=== PATIENT | male | born 1980 | race Caucasian/White ===

== ENCOUNTER 2022-09-18 00:20 | Day surgery (SDC) | payer OTHER, SELFPAY ==
--- NOTE | 2022-09-11 13:35 | PC.NURSE ---
Report to the Outpatient Waiting Room, entrance under the green pavilion located off [facility], at time 10:00AM on date 09-18-22. Planned Procedure Time: 12:00PM. Time changes happen often and if your time is changed the preop area will call you the afternoon before. - You and your visitor will be asked to self-screen and do not enter if you have any COVID symptoms. - We encourage only one visitor and NO visitors under age 16 are allowed at this time. Your visitor will receive communication by the phone number that is given day of service. - The patient visitor is requested to social distance or may leave the building when not with patient due to restrictions. - A mask is required within the hospital. Patients may have clear liquids (water, carbonated beverages, clear teas, apple juice) until 3 hours prior to surgery (9:00AM) with a maximum of 20 ounces. - No food from midnight until time of surgery Take the following medications with a SIP of water the morning of surgery: N/A Medications to discontinue per physician: PROBIOTIC Date to take last dose: 09/14 Please no make-up, nail vietnamese, hairspray, perfume, deodorant, or body powder the day of surgery. No jewelry (including any body piercings) or valuables the day of surgery, leave them at home. Please take a shower or bath the night before, or the morning of, surgery with an antibacterial soap. Wear comfortable, loose fitting clothing. - Jewelry must be removed prior to entering the operating room. Rings and piercings that are not removed may be cut off. - The hospital will not accept responsibility for valuables. - Please leave all valuables, including medications, at home the day of surgery. If you are going home after surgery, a licensed light truck driver must drive you home. - NO public transportation without another adult. - We recommend that an adult stay with you for 24 hours following discharge. - We also recommend that you do not drive, make important decision, drink alcoholic beverages, or take any drugs that were not prescribed by your health care provider for at least 24 hours after your discharge time. Follow any additional instructions given to you from your surgeon. If you or anyone in your household have experienced Covid symptoms in the past week, please notify your surgeon or the nurse liaison at the phone number below for possible testing. Telephone instructions given to PATIENT and asked if any additional questions and then verbalized understanding. Patient advised to call surgeon office or pre surgery nurse liaison [phone] if any additional questions.
[2022-09-18] MEDS: KETOROLAC 15 MG/ML VIAL (*BKC) IV PUSH (10:40)
[2022-09-18] MEDS: LACTATED RINGERS 1,000 ML 30 ML IV CONT ×2 (10:40→12:59)
[2022-09-18] MEDS: ACETAMINOPHEN 500 MG TABLET 1000 MG PO (10:40)
[2022-09-18 10:44] VITALS: BP 146/107; PULSE 86; RESP 14; TEMP 36.3; O2SAT 99
--- NOTE | 2022-09-18 10:52 | WPDANESEPPF ---
Anes - Initial Pre Proc Eval Procedure: Operation Date: 09/18/22 12:00 Proposed Procedures p Umbilical Hernia Repair with Mesh - Manuel Hernandez MD Date/Time: 09/18/22 10:52 Surgeon: Manuel Hernandez MD Pre Op Diagnosis: umbilical hernia Patient Data Age: 42 Gender: M Height: 1.78 m Weight: 97.6 kg Last Vital Signs Temp 36.3 C L 09/18/22 10:44 Pulse 86 09/18/22 10:44 Resp 14 09/18/22 10:44 BP 146/107 H 09/18/22 10:44 Pulse Ox 99 09/18/22 10:44 O2 Del Method Room Air 09/18/22 10:44 Allergies Allergy/AdvReac Type Severity Reaction Status Date / Time amoxicillin Allergy Mild Hives Verified 09/18/22 10:48 Home Medications Medication Instructions Recorded Confirmed Type cetirizine 10 mg tablet (Zyrtec) 10 mg PO DAILY 08/15/21 09/11/22 History fluticasone propionate 50 1 spray intranasal DAILY 08/15/21 09/11/22 History mcg/actuation nasal spray,suspension (Flonase Allergy Relief) Saccharomyces boulardii 250 mg 5,000 mmu cells PO DAILY 04/22/22 09/11/22 History capsule (Daily Probiotic (S. boulardii)) Patient hx anesthesia problems: none Family hx anesthesia problems: none Results Review: All pre-operative results and documents have been reviewed as part of the pre-operative evaluation. [facility] Past Medical History Medical History (Updated 09/18/22 @ 10:55 by Dank Amaya MD) Allergies Headache Snores Surgical History Surgical History Hx of sinus surgery Status post trigger finger release Family History Family History Sibling Family history of kidney stones Mother Family history of malignant neoplasm of breast in first degree relative Social History Social History Years smoked: 4 Smoking status: Current some day smoker Tobacco type: cigars Second hand tobacco smoke exposure: No Alcohol intake: current Drinks per week: 25 Alcohol use details: LIQUIOR Substance use: never Substance use type: does not use Living arrangements: with family 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 Informed Consent: The patient's anesthetic plan and its attendant risks and benefits were discussed with the patient/family/POA. Questions were solicited and answers provided to the satisfaction of the patient/family/POA.
--- NOTE | 2022-09-18 12:00 | WPDHPUPDATE1 ---
History and Physical Update Update Date/Time: 09/18/22 12:00 History and Physical has been reviewed, including an updated exam of the patient. There are NO changes in the patient's condition. Risks, benefits, and alternatives have been discussed and questions answered. Patient agrees to proceed with procedure.
--- NOTE | 2022-09-18 12:03 | PM.SD2 ---
Same Day Admit/Disch: HPI History of Present Illness Chief complaint: umbilical hernia Narrative: Luis Miguel Mauro is a 42 year old male with a bulge in upper margin umbilicus. He was seen and found to have an umbilical hernia. He is taken to surgery now for repair with mesh. [facility] Past Medical History Medical History (Updated 09/18/22 @ 10:55 by Dank Amaya MD) Allergies Headache Snores Surgical History Surgical History Hx of sinus surgery Status post trigger finger release Family History Family History Sibling Family history of kidney stones Mother Family history of malignant neoplasm of breast in first degree relative Social History Social History Years smoked: 4 Smoking status: Current some day smoker Tobacco type: cigars Second hand tobacco smoke exposure: No Alcohol intake: current Drinks per week: 25 Alcohol use details: LIQUIOR Substance use: never Substance use type: does not use Living arrangements: with family Additional occupation/education comments: [employer] Gender identity (if verbalized by the patient): Male Spiritual care concerns: No Same Day Admit/Disch: Med Pre-admit Medications Home Medications Medication Instructions Recorded Confirmed Type cetirizine 10 mg tablet (Zyrtec) 10 mg PO DAILY 08/15/21 09/11/22 History fluticasone propionate 50 1 spray intranasal DAILY 08/15/21 09/11/22 History mcg/actuation nasal spray,suspension (Flonase Allergy Relief) Saccharomyces boulardii 250 mg 5,000 mmu cells PO DAILY 04/22/22 09/11/22 History capsule (Daily Probiotic (S. boulardii)) hydrocodone 5 mg-acetaminophen 325 1 - 2 tablet PO Q6H PRN pain #15 09/18/22 Rx mg tablet tabs ketorolac 10 mg tablet 10 mg PO Q6H 4 days #16 tabs 09/18/22 Rx Exam Const: General: comfortable, no acute distress, alert and awake HENMT: Head: normocephalic and atraumatic Mouth: Yes Normal oral and palatal mucosa present Eyes: Conjunctivae: conjunctivae normal Pupils: Equal, round and reactive pupils present EOM: EOMs intact bilaterally Neck: Neck: normal visual inspection, no lymphadenopathy and nontender Resp: Effort & Inspection: normal respiratory effort Auscultation: clear to auscultation bilaterally Cardio: Rate: regular rate Rhythm: regular rhythm Heart sounds: no gallops, no murmurs and no rubs GI: Inspection: non-distended and visible herniation (umbilical) GI Palp: Yes Soft to palpation, No Tenderness to palpation present (GI), No Hepatomegaly present, No Splenomegaly present and Yes Hernia present (umbilical, reducible) Skin: Lesions: no lesions Rashes: no rashes Neuro: General: no focal motor deficits and CN's II-XI intact bilaterally Cranial nerves: Yes Equal, round and reactive pupils present, Yes Bilaterally intact EOM present, Yes facial symmetry and Yes Midline tongue present Speech: normal speech Motor exam (neuro): 5/5 motor strength present throughout and Motor abnormalities not present Extrem: General: no clubbing, cyanosis or edema and edema Psych: Affect: normal affect Thought process: Normal thought process present Insight: Good insight present (Psych) DS: Summary Time Spent with Patient Time attestation: Total time spent providing and/or coordinating discharge services: DS: Admitting Diagnosis Discharge Date 09/18/22 Admitting Diagnosis Umbilical hernia--plan to repair with mesh under anesthesia. Procedure, risks, benefits were explained. Patient understands and agrees to proceed. DS: Discharge Diagnosis Discharge Diagnosis (1) Umbilical hernia: Code(s): K42.9 - Umbilical hernia without obstruction or gangrene Status: Acute Assessment and Plan: Repaired with mesh 09/18/[address] Hernandez Discharge Plan Discharge Pat
[2022-09-18] MEDS: ceFAZolin 2 GM/D5W 50 ML 2 GM/50 ML BAG IVPB (12:04)
[2022-09-18] MEDS: BUPIVACAINE/EPINEPHRINE 0.25% 50 ML VIAL 30 ML INFILTRATE (12:28)
[2022-09-18 13:05] VITALS: BP 153/80; PULSE 100; RESP 16; O2SAT 94
--- NOTE | 2022-09-18 13:25 | W.PM.PROC2 ---
Procedure Note - Detailed Date of Procedure 09/18/22 Pre-op Diagnosis umbilical hernia Post-op Diagnosis Same Procedure Performed Repair umbilical hernia with 4.[address] underlay mesh Surgeon Manuel Hernandez MD Clerk Of [address] Sheila ECKERT Anesthesia MAC and Local (0.25% Marcaine with epinephrine) Indications Patient is a 42-year-old man with a bulge just above the umbilicus. It has been getting larger and is occasionally uncomfortable. He is taken to surgery now for umbilical hernia repair with mesh. Findings Properitoneal fat was in the hernia defect. He had a defect of about 1 cm. Description of Procedure Patient was taken to surgery and anesthesia was introduced. The abdomen is prepped and draped. The proposed incision was marked along the upper margin of the umbilicus. Local was infiltrated in this area and in the subcutaneous. Incision was made dissection was carried down through the subcutaneous. The hernia sac was found it was dissected free of the umbilical skin and the subcutaneous tissue. The dissection was continued down to the neck of the hernia. Additional local was then infiltrated into the neck of the hernia sac into the surrounding fascia. I then amputated the hernia at the fascial margin. Some properitoneal fat in the hernia defect was excised as well. This tissue was discarded. I then put a finger in the hernia defect. No additional adhesions or hernias were noted. A 4.[address] patch was chosen and placed in the defect. It was positioned symmetrically. Cranial and caudal transfascial sutures of 0 Ethibond were then placed. These were positioned such that once they were tied, the advance the edges of the hernia defect towards 1 another. After tying the suture, they had the desired effect. I then placed additional sutures to close the hernia defect each of which incorporated some of the mesh. The repair looked quite good. I then sutured the umbilical skin to the fascia with an 0 Vicryl suture. Some subcutaneous 3-0 Vicryl sutures were then placed. The skin was loosely approximated with subcuticular 4-0 Vicryl skin suture. The skin was finally closed with a running 4-0 Monocryl skin suture. The wound was dressed with Exofin surgical adhesive. The patient was awakened and taken to outpatient recovery in good condition. Sponge and needle counts were correct x2. Implants 4.[address] patch Estimated Blood Loss -5.0 Drains No Packing No Pathology None sent Complications No immediate complications Condition Stable Disposition Same day [facility] Billing Surgery - Charge Forward: Surgery Billing (Umbilical hernia repair with mesh)
[2022-09-18 13:35] VITALS: BP 158/97; PULSE 64; RESP 16
[2022-09-18] MEDS: oxyCODONE HCL (*CRX) 5 MG TAB IR PO (14:03)
[2022-09-18 14:05] VITALS: BP 145/100; PULSE 60; RESP 16
== END 2022-09-18 14:35 | disposition home or self-care (01) ==
PROVIDERS: Visit Provider Surgery
PROC: (CPT 49585; principal; 2022-09-18 12:00)
DX: K42.9 Umbilical hernia without obstruction or gangrene (principal); F17.290 Nicotine dependence, other tobacco product, uncomplicated; E66.9 Obesity, unspecified; Z68.30 Body mass index [BMI] 30.0-30.9, adult
CPT/HCPCS: 49585; A9270; C1781; J0690; J1100; J1885; J2250; J2405; J2704; J3010; J7120

== ENCOUNTER 2022-09-19 03:56 | Inpatient (IN) | payer OTHER, SELFPAY ==
[2022-09-19] VITALS (17 sets, daily range): BP systolic 123–152; BP diastolic 82–100; PULSE 113–128; RESP 12–20; TEMP 36.4–37.7; O2SAT 92–100; BMI 32.3
--- NOTE | ~2022-09-19 | US_ITS ---
EXAMINATION: US venous doppler [facility] DATE: 09/24/2022 14:34 INDICATION: Lower limb edema. TECHNIQUE: Grayscale ultrasound images without and with compression and Doppler ultrasound images of the bilateral lower extremity veins were obtained. COMPARISON: None. FINDINGS: The visualized portions of right common femoral vein, profunda (deep) femoral vein, femoral vein, pop liteal vein, peroneal veins, posterior tibial veins, and greater saphenous vein outflow are patent. The visualized portions of left common femoral vein, profunda femoral vein, femoral vein, popliteal v ein, peroneal veins, posterior tibial veins, and greater saphenous vein outflow are patent. IMPRESSION: 1. No deep venous thrombosis. Reviewed, dictated and finalized at location A. LLMENT MANAGER
--- NOTE | 2022-09-19 04:07 | ADMGEN ---
This patient, Luis Miguel Mauro, was admitted to Medical Room 349-01. Patient/family oriented to hospital policies and general routines including ID bracelet, bed and alarms, visiting hours, pain management, procedures, bathroom and other care routines, personal items, smoking policy, room service/diet, and visiting hours. Information on how to activate the Rapid Response Team has been discussed. Patient/Family are encouraged to report perceived risks to care and to ask questions if they do not understand what they are told or what they should do.
[2022-09-19 04:25] LABS: Basophils Percent Auto 0.2 % (0.2-1.2); Hematocrit 44.6 % (42.0-52.0); Hemoglobin 14.9 g/dL (14.0-18.0); Immature Granulocyte Absolute 0.07 K/mm3 (0.00-0.031); Immature Granulocyte Percent A 0.5 % (0-0.5); Lymphocytes Absolute Auto 0.73 K/mm3 (0.9-3.2); Lymphocytes Percent Auto 5.1 % (18.3-44.2); Mean Corpuscular HGB Conc 33.4 g/dl (32-36); Mean Corpuscular Hemoglobin 29.1 pg (26-34); Mean Corpuscular Volume 87.1 fl (80-100); Mean Platelet Volume 10.3 fl (7.4-10.4); Monocytes Absolute Auto 0.8 K/mm3 (0.1-0.6); Monocytes Percent Auto 5.7 % (2.6-8.5); Neutrophils Absolute Auto 12.6 K/mm3 (1.3-6.7); Neutrophils Percent Auto 88.5 % (45.5-73.1); Platelet Count Result 251 k/mm3 (150-375); Red Blood Count 5.12 M/mm3 (4.6-6.20); Red Cell Distribution Width 13.4 % (11.5-14.5); White Blood Count 14.2 K/mm3 (4.5-10.0)
[2022-09-19 04:37] LABS: Alanine Aminotransferase 52 U/L (6-50); Albumin Level 4.4 g/dL (3.5-5.1); Alkaline Phosphatase 74 U/L (38-126); Anion Gap 12 mmol/L (8-16); Aspartate Amino Transferase 37 U/L (17-59); Bilirubin,Total 0.6 mg/dL (0.2-1.3); Blood Urea Nitrogen 15 mg/dL (9-20); Calcium 9.1 mg/dL (8.4-10.2); Carbon Dioxide 24 mmol/L (22-30); Chloride 104 mmol/L (98-107); Estimated Glomerular Filt Rate > 60; Glucose 142 mg/dL (65-110); Potassium 4.5 mmol/L (3.4-5.0); Sodium 140 mmol/L (137-145)
[2022-09-19] MEDS: SODIUM CHLORIDE 0.9% IV 1,000 ML 100 ML IV CONT (05:13)
[2022-09-19] MEDS: HYDROmorphone HCL INJ (*CRX) 1 MG/ML SYR 0.5 MG IV PUSH ×2 (07:27→09:48)
[2022-09-19] MEDS: IBUPROFEN IV 800 MG/200 ML 800 MG/200 ML BAG 400 MG IVPB ×3 (08:18→23:26)
--- NOTE | 2022-09-19 09:24 | PM.IMHP ---
H&P: HPI History of Present Illness Date/Time: 09/19/22 09:24 Chief Complaint: abdominal pain Narrative: patient is a 42-year-old man who presented with a symptomatic umbilical hernia. Yesterday he underwent umbilical hernia repair with 4.[address] underlay mesh patch. The surgery was done under deep sedation and local anesthetic. The patient went home and was having a normal recovery until about 6 hours after revive in home when he began experiencing severe periumbilical pain. This persisted and they called my partner who was on-call last night. They were instructed to go to the emergency room. They went to the emergency room in [place]. There was concern over cardiac etiology. This was evaluated and found to be negative. [place] [id number]. He was continuing to have pain. A CT scan of the abdomen and pelvis was done in [place]. This was negative by the radiologist report. After calling my partner again, he transferred to [place] and has been admitted. He arrived here about 4:00 a.m.. He has continued to have pain although Dilaudid and more recently some IV ibuprofen has made this more tolerable. I reviewed the CT disc from [place] with our radiologist, Dr. Bhaskar Chand, and no significant intra-abdominal process was identified from our reading as well. I did notice there is a loop of small bowel that seems to be directly under the repair. Patient continues to have abdominal pain and tenderness. It is thought likely there is some degree of bowel entrapment associated with the repair. He is to return to surgery today for exploratory laparotomy to evaluate this and alleviate this problem should it exist. Review of Systems Review of Systems: All systems reviewed & are unremarkable except as noted in HPI and below ( HPI and those items noted below) Constitutional: Constitutional: Reports as per HPI, Denies chills, Reports difficulty sleeping, Denies fever(s) and Reports poor appetite Cardiovascular: Cardiovascular: Denies chest pain, Denies diaphoresis, Denies dyspnea and Denies paroxysmal nocturnal dyspnea Respiratory: Respiratory: Denies chest congestion, Denies cough and Denies dyspnea Gastrointestinal: Gastrointestinal: Reports as per HPI, Reports abdominal pain, Reports nausea and Reports vomiting ( dry heaves) Integumentary/Breasts: Skin/Breast: Denies lesions and Denies rash [facility] Past Medical History Medical History (Updated 09/19/22 @ 09:34 by Manuel Hernandez MD) Allergies Headache Snores Surgical History Surgical History (Updated 09/19/22 @ 09:34 by Manuel Hernandez MD) Hx of sinus surgery Status post trigger finger release Family History Family History Sibling Family history of kidney stones Mother Family history of malignant neoplasm of breast in first degree relative Social History Social History Years smoked: 4 Smoking status: Light tobacco smoker Tobacco type: cigars Second hand tobacco smoke exposure: No Alcohol intake: current Drinks per week: 20 Alcohol use details: LIQUIOR Substance use: never Substance use type: does not use Has the Lack of Transportation Kept You From Medical Appointments or From Getting Medications?: No Within the Past 12 Months, Were You Worried Whether Your Food Would Run Out Before You Got Money to Buy More?: Sometimes True What is Your Housing Situation Today?: I Have Housing Are You Worried That in the Next 2 Months, You May Not Have Your Own Housing to Live In?: No Do You Have Trouble Paying Your Heating Or Electricity Bill?: Yes Do You Have Trouble Paying For Medicines?: Yes Are You Currently Unemployed and Looking for Work?: Yes Highest Level of Education Completed: Associate Degree Do You Have Trouble With Childcare or the Care of a Family Member?: No Additional occupation
--- NOTE | 2022-09-19 09:39 | WPDHPUPDATE1 ---
History and Physical Update Update Date/Time: 09/19/22 09:39 History and Physical has been reviewed, including an updated exam of the patient. There are NO changes in the patient's condition. Risks, benefits, and alternatives have been discussed and questions answered. Patient agrees to proceed with procedure.
--- NOTE | 2022-09-19 10:24 | PC.NURSE ---
0800 Dr moore notified of pt abd distended and could not hear bowel sounds, pt c/o pain. BP 167/89, hr 125, resp 22 and temp 99.7. New orders received.
[2022-09-19] MEDS: HYDROmorphone HCL INJ (*CRX) 1 MG/ML SYR IV PUSH ×2 (11:26→20:37)
[2022-09-19] MEDS: LACTATED RINGERS 1,000 ML 30 ML IV CONT ×2 (12:45→15:05)
--- NOTE | 2022-09-19 12:52 | WPDANESEPPF ---
Anes - Initial Pre Proc Eval Procedure: Operation Date: 09/19/22 13:30 Proposed Procedures p Exploratory Laparotomy - Manuel Hernandez MD Date/Time: 09/19/22 12:52 Surgeon: Manuel Hernandez MD Pre Op Diagnosis: Post Op complications Patient Data Age: 42 Gender: M Height: 1.78 m Weight: 102.3 kg Last Vital Signs Temp 37.2 C 09/19/22 11:13 Pulse 116 H 09/19/22 11:13 Resp 20 09/19/22 11:13 BP 152/97 H 09/19/22 11:13 Pulse Ox 92 09/19/22 11:13 O2 Del Method Room Air 09/19/22 04:37 Allergies Allergy/AdvReac Type Severity Reaction Status Date / Time amoxicillin Allergy Mild Hives Verified 09/18/22 10:48 Home Medications Medication Instructions Recorded Confirmed Type cetirizine 10 mg tablet (Zyrtec) 10 mg PO DAILY 08/15/21 09/19/22 History fluticasone propionate 50 1 spray intranasal DAILY 08/15/21 09/19/22 History mcg/actuation nasal spray,suspension (Flonase Allergy Relief) Saccharomyces boulardii 250 mg 5,000 mmu cells PO DAILY 04/22/22 09/19/22 History capsule (Daily Probiotic (S. boulardii)) hydrocodone 5 mg-acetaminophen 325 1 - 2 tablet PO Q6H PRN Pain 09/19/22 09/19/22 History mg tablet (Scale Score 4-6) ketorolac 10 mg tablet 10 mg PO Q6H PRN Pain (Scale Score 09/19/22 09/19/22 History 1-3) Laboratory Tests 09/19/22 09/19/22 09/19/22 04:00 04:15 09:37 WBC 14.2 K/mm3 H K/mm3 (4.5-10.0) RBC 5.12 M/mm3 M/mm3 (4.6-6.20) Hgb 14.9 g/dL g/dL (14.0-18.0) Hct 44.6 % % (42.0-52.0) MCV 87.1 fl fl (80-100) MCH 29.1 pg pg (26-34) MCHC 33.4 g/dl g/dl (32-36) RDW 13.4 % % (11.5-14.5) Plt Count 251 k/mm3 k/mm3 (150-375) MPV 10.3 fl fl (7.4-10.4) Immature Gran % (Auto) 0.5 % % (0-0.5) Neut % (Auto) 88.5 % H % (45.5-73.1) Lymph % (Auto) 5.1 % L % (18.3-44.2) [place] % (Auto) 5.7 % % (2.6-8.5) Eos % (Auto) 0.0 % % (0-4.4) Baso % (Auto) 0.2 % % (0.2-1.2) Lymph # (Auto) 0.73 K/mm3 L K/mm3 (0.9-3.2) [place] # (Auto) 0.8 K/mm3 H K/mm3 (0.1-0.6) Eos # (Auto) 0.0 K/mm3 K/mm3 (0-0.3) Baso # (Auto) 0.0 K/mm3 K/mm3 (0.0-0.1) Abs Immat Gran (auto) 0.07 K/mm3 H K/mm3 (0.00-0.031) Absolute Neuts (auto) 12.6 K/mm3 H K/mm3 (1.3-6.7) Absolute Nucleated RBC 0.0 K/mm3 K/mm3 (0.0-0.012) Nucleated RBC % 0.0 % % (0.0-0.2) Sodium 140 mmol/L mmol/L (137-145) Potassium 4.5 mmol/L mmol/L (3.4-5.0) Chloride 104 mmol/L mmol/L (98-107) Carbon Dioxide 24 mmol/L mmol/L (22-30) Anion Gap 12 mmol/L mmol/L (8-16) BUN 15 mg/dL mg/dL (9-20) Creatinine 1.20 mg/dL mg/dL (0.7-1.3) Estim Creat Clear Calc Not Reportable Estimated GFR > 60 (59 - ) Glucose 142 mg/dL H mg/dL (65-110) Calcium 9.1 mg/dL mg/dL (8.4-10.2) Total Bilirubin 0.6 mg/dL mg/dL (0.2-1.3) AST 37 U/L U/L (17-59) ALT 52 U/L H U/L (6-50) Alkaline Phosphatase 74 U/L U/L (38-126) Total Protein 8.0 g/dL g/dL (6.3-8.2) Albumin 4.4 g/dL g/dL (3.5-5.1) Blood Type A Positive Antibody Screen Negative Patient hx anesthesia problems: none Family hx anesthesia problems: none Results Review: All pre-operative results and documents have been reviewed as part of the pre-operative evaluation. PMF Past Medical History Medical History Allergies Headache Snores Surgical History Surgical History (Updated 09/19/22 @ 12:53 by Dank Amaya MD) H/O umbilical hernia repair Hx of sinus surgery Status post trigger finger release Family History Family History (Reviewed 09/19/22
[2022-09-19] MEDS: ceFAZolin 2 GM/D5W 50 ML 2 GM/50 ML BAG IVPB (13:18)
[2022-09-19] MEDS: BUPIVACAINE/EPINEPHRINE 0.25% 50 ML VIAL 30 ML INFILTRATE (14:35)
--- NOTE | 2022-09-19 16:09 | W.PM.PROC2 ---
Procedure Note - Detailed Date of Procedure 09/19/22 Pre-op Diagnosis Mid abdominal pain Post-op Diagnosis Other (Bowel injury with perforation) Procedure Performed Repair small intestinal enterotomy Surgeon Manuel Hernandez MD [employer] Equipment [employer] Manager Carlotta ECKERT Anesthesia General Indications Patient is a 42-year-old man who had repair of an umbilical hernia yesterday. This was done with underlay Ventralex ST 4.3 cm mesh. He was home about 6 hours when he started having severe abdominal pain. He went to the emergency room in [place]. Cardiac workup and CT scan were negative. He continued to have pain and transferred to [place] where he was admitted. CT again was reviewed and did not show any significant findings. However due to the persistent severe abdominal pain and tenderness, patient is taken to surgery for exploratory laparotomy for suspected bowel injury from his hernia repair yesterday. Findings There was an enterotomy in the ileum about 4 ft from the ileocecal valve which was leaking intestinal content. Most likely this had been snagged on a suture and when pulled away started leaking enteric content. There was small bowel content in the abdomen. No other pathology was noted. Description of Procedure The patient was taken to surgery and induced into general anesthesia. The surgical adhesive was removed as best possible from the old incision. Prep and drape of the entire abdomen was carried out. The curved incision above the upper margin of the umbilicus was reopened. Sutures were removed in the subcutaneous and the suture holding the umbilical skin to the fascia was removed as well. I then cut all of the Ethibond suture used in the repair and removed each of them. I then carefully removed the mesh. I looked at the undersurface the mesh as I was removing it. I saw nothing unusual. Directly under the mesh, there was some small intestine but it did not have any injury. Elevating the fascia I then saw some small bowel content. Clearly there was an enterotomy that would have to be found and repaired. The umbilical hernia defect was small only about a cm in diameter. The surgery was converted to a more conventional laparotomy. A midline incision was made starting below the umbilicus and extending above it. Dissection through the subcutaneous was carried out and the midline fascia was opened such that the peritoneal cavity could be entered and explored. More enteric content was encountered. We suctioned as much of this away as possible. I then looked and found the injury in the small bowel. To temporarily stop leakage, I used a couple of 2-0 silk Lembert suture. This controlled the leakage. I then suctioned away as much of the enteric content in the peritoneal cavity as I could. We irrigated with a full L of warm saline and suctioned all of that away. By the end of this, most of the content was serous or serosanguineous. I then ran the entire small intestine. This was the only injury found. It was about 4 ft proximal to the ileocecal valve in the distal ileum. Interestingly, it was several feet distal to the bowel laying directly under the mesh on opening the abdomen. The nasogastric tube was positioned appropriately in the stomach. I then brought up the injured small bowel and quarantined it. The injury was at the junction of the mesentery. I put noncrushing bowel clamps on either side of the injury. The previously placed silk suture were removed. I then carefully examined the injury. The edges of the bowel seemed viable. I then carefully dissected away the mesentery so that I could see bowel serosa all around the area of the injury. Cautery was used for hemostasis. Bleeding was minimal. I closed the enterotomy in 2 layers. The inner layer was full-thickness inverted 4-0 chromic suture in interrupted fashion. The outer layer was Lembert seromuscular suture of 4-0 silk in interrupted fashion. The repair looked quite good. I trie
--- NOTE | 2022-09-19 17:18 | PM.IMCN ---
Assessment and Plan Assessment and plan (1) Obesity (BMI 30-39.9): Code(s): E66.9 - Obesity, unspecified Status: Acute (2) Hyperlipidemia: Code(s): E78.5 - Hyperlipidemia, unspecified Status: Acute (3) GERD (gastroesophageal reflux disease): Code(s): K21.9 - Gastro-esophageal reflux disease without esophagitis Status: Acute (4) Tobacco use: Code(s): Z72.0 - Tobacco use Status: Acute (5) History of umbilical hernia repair: Code(s): Z98.890 - Other specified postprocedural states; Z87.19 - Personal history of other diseases of the digestive system Status: Acute (6) Transient elevated blood pressure: Code(s): R03.0 - Elevated blood-pressure reading, without diagnosis of hypertension Status: Acute (7) Gastritis: Code(s): K29.70 - Gastritis, unspecified, without bleeding Status: Acute (8) Daily consumption of alcohol: Code(s): Z78.9 - Other specified health status Status: Acute Plan 42-year-old male status postop day 1 after herniorrhaphy presents to the hospital with acute abdominal pain and distension. Admit to med surge Vital signs per protocol Continue home medications when placed into p.o. status Levaquin metronidazole CIWA monitoring Consult Dr. Hernandez Postoperative orders pain management, fluids, antiemetics, and antacids per surgery HPI Data of Consult Consult date: 09/19/22 Requesting Physician: Manuel Hernandez MD Primary Care Provider: Jodee Osei, DO Consult Narrative Narrative: Luis Miguel Mauro is a 42 year old male Who underwent laparoscopic hernia repair with Dr. Hernandez at [facility] yesterday. Patient reports that he is having worsening abdominal distension and pain and he has presented today for surgical evaluation with Dr. Hernandez. CT imaging findings are suspicious for possible small bowel entrapment. Patient is scheduled now to undergo exploratory laparotomy by Surgeon. General review of systems is otherwise within normal limits and other than abdominal pain and distension he has no complaints. Review of Systems Review of Systems: All systems reviewed & are unremarkable except as noted in HPI and below PMFSH Past Medical History Medical History (Updated 09/19/22 @ 17:23 by Zo Lopez MD) Allergies Daily consumption of alcohol Gastritis GERD (gastroesophageal reflux disease) Headache Hyperlipidemia Obesity (BMI 30-39.9) Snores Tobacco use Transient elevated blood pressure Surgical History Surgical History (Updated 09/19/22 @ 17:23 by Zo Lopez MD) H/O umbilical hernia repair History of umbilical hernia repair Hx of sinus surgery Status post trigger finger release Family History Family History Sibling Family history of kidney stones Mother Family history of malignant neoplasm of breast in first degree relative Social History Social History Years smoked: 4 Smoking status: Light tobacco smoker Tobacco type: cigars Second hand tobacco smoke exposure: No Alcohol intake: current Drinks per week: 20 Alcohol use details: LIQUIOR Substance use: never Substance use type: does not use Has the Lack of Transportation Kept You From Medical Appointments or From Getting Medications?: No Within the Past 12 Months, Were You Worried Whether Your Food Would Run Out Before You Got Money to Buy More?: Sometimes True What is Your Housing Situation Today?: I Have Housing Are You Worried That in the Next 2 Months, You May Not Have Your Own Housing to Live In?: No Do You Have Trouble Paying Your Heating Or Electricity Bill?: Yes Do You Have Trouble Paying For Medicines?: Yes Are You Currently Unemployed and Looking for Work?: Yes Highest Level of Education Completed: Associate Degree Do You Have Trouble With Chil
[2022-09-19 18:18] LABS: Glucose Point of Care 149 mg/dl (65-105)
[2022-09-19] MEDS: LACTATED RINGERS 1,000 ML 100 ML IV CONT (20:29)
[2022-09-19] MEDS: FAMOTIDINE 20 MG/2 ML VIAL IV PUSH (20:39)
[2022-09-19] MEDS: metroNIDAZOLE 500 MG/ISO 100ML 500 MG/100 ML BAG 100 MG IVPB (20:42)
[2022-09-20] VITALS (7 sets, daily range): BP systolic 134–150; BP diastolic 84–102; PULSE 108–122; RESP 16–20; TEMP 36.6–37.2; O2SAT 90–96
[2022-09-20 01:04] LABS: Glucose Point of Care 144 mg/dl (65-105)
[2022-09-20] MEDS: metroNIDAZOLE 500 MG/ISO 100ML 500 MG/100 ML BAG 100 MG IVPB ×4 (01:55→18:52)
[2022-09-20] MEDS: IBUPROFEN IV 800 MG/200 ML 800 MG/200 ML BAG 400 MG IVPB ×4 (04:22→22:58)
[2022-09-20 06:05] LABS: Hematocrit 41.4 % (42.0-52.0); Hemoglobin 13.5 g/dL (14.0-18.0); Mean Corpuscular HGB Conc 32.6 g/dl (32-36); Mean Corpuscular Hemoglobin 28.7 pg (26-34); Mean Corpuscular Volume 87.9 fl (80-100); Mean Platelet Volume 10.6 fl (7.4-10.4); Platelet Count Result 211 k/mm3 (150-375); Red Blood Count 4.71 M/mm3 (4.6-6.20); Red Cell Distribution Width 13.9 % (11.5-14.5); White Blood Count 10.5 K/mm3 (4.5-10.0)
[2022-09-20 06:12] LABS: Anion Gap 16 mmol/L (8-16); Blood Urea Nitrogen 15 mg/dL (9-20); Calcium 8.3 mg/dL (8.4-10.2); Carbon Dioxide 24 mmol/L (22-30); Chloride 104 mmol/L (98-107); Estimated CRCL calculation 87 ml/min; Estimated Glomerular Filt Rate > 60; Glucose 144 mg/dL (65-110); Potassium 3.9 mmol/L (3.4-5.0); Sodium 144 mmol/L (137-145)
[2022-09-20] MEDS: HYDROmorphone HCL INJ (*CRX) 1 MG/ML SYR IV PUSH (06:14)
[2022-09-20] MEDS: ENOXAPARIN 40 MG/0.4 ML SYRINGE SUB-Q (08:48)
[2022-09-20] MEDS: FAMOTIDINE 20 MG/2 ML VIAL IV PUSH ×2 (08:48→20:11)
[2022-09-20] MEDS: THIAMINE HCL 200 MG/2 ML VIAL 100 MG IV PUSH (08:48)
[2022-09-20 09:20] LABS: Glucose Point of Care 166 mg/dl (65-105)
[2022-09-20] MEDS: LACTATED RINGERS 1,000 ML 100 ML IV CONT (10:24)
--- NOTE | 2022-09-20 10:39 | PM.IMPN ---
Progress Note: A&P Assessment and Plan (1) Obesity (BMI 30-39.9): Code(s): E66.9 - Obesity, unspecified Status: Acute (2) Hyperlipidemia: Code(s): E78.5 - Hyperlipidemia, unspecified Status: Acute (3) GERD (gastroesophageal reflux disease): Code(s): K21.9 - Gastro-esophageal reflux disease without esophagitis Status: Acute (4) Tobacco use: Code(s): Z72.0 - Tobacco use Status: Acute (5) History of umbilical hernia repair: Code(s): Z98.890 - Other specified postprocedural states; Z87.19 - Personal history of other diseases of the digestive system Status: Acute (6) Transient elevated blood pressure: Code(s): R03.0 - Elevated blood-pressure reading, without diagnosis of hypertension Status: Acute (7) Gastritis: Code(s): K29.70 - Gastritis, unspecified, without bleeding Status: Acute (8) Daily consumption of alcohol: Code(s): Z78.9 - Other specified health status Status: Acute Plan 09/19/22 ?42-year-old male? status postop day 1 after herniorrhaphy presents to the hospital with acute abdominal pain and distension. ?Admit to med surge Vital signs per protocol Continue home medications? when placed into p.o. status ?Levaquin ?metronidazole ?CIWA monitoring Consult Dr. Hernandez Postoperative orders pain management, fluids, antiemetics, and antacids per surgery 09/20/22 s/p exp lap, repair of duodenal enterotomy w peritoneal washout POD1 VS improving labs improving pain improved but not controlled (pt not asking for pain meds intentionally) OOB to chair ambulate in hallway NGT to remain until bowel fxn regained Subjective Date/time seen: 09/20/22 10:39 pt feeling much better pending activity recs by surgeon but is wanting to get up to chair and wants NGT out pain improved Review of Systems Review of Systems: All systems reviewed & are unremarkable except as noted in HPI and below Exam Narrative: Const:?? General: NAD comfo rtable resting HENMT:?? Face/Nose/Sinus: N ormal nares presen t and no epistaxis ? Mouth: Yes moist mucous membranes, NGT present Eyes:?? General: appearanc e normal, both eye s and all related structures? EOM: E OMs intact bilater ally Neck:?? Neck: supple and n o JVD Resp:?? Effort & Inspectio n: normal respirat ory effort? Auscul tation: clear to a uscultation bilate rally, no rhonchi and no wheezes Cardio:?? Rate: regular rate ? Rhythm: regular rhythm GI:?? Inspection: disten ded? GI Palp: Yes soft to palpation present (GI), Yes Tenderness to palp ation present (GI) and No Guarding due to palpation p resent (GI)? Auscu ltation: abnormal bowel sounds Skin:?? General skin exam: normal color and no erythema? Other : ?surgical sites covered with martinez ge C/D/I Neuro:?? Speech: normal spe ech? Motor exam (n euro): 5/5 motor s trength present th roughout and Mima l motor muscle ton e present througho ut Extrem:?? General: normal to
[2022-09-20 12:45] LABS: Glucose Point of Care 135 mg/dl (65-105)
--- NOTE | 2022-09-20 13:20 | PM.PNGS ---
Progress Note: A&P Assessment and Plan (1) Accidental injury of intestine during surgical procedure: Code(s): K91.81 - Other intraoperative complications of digestive system Status: Acute Assessment and Plan: I had discussed the nature of the injury and the cause of the injury with both the patient and his yesterday. Since he may have been somewhat under anesthetic affect as well as being ill from the peritonitis, I discussed again with him the bowel injury was due to inadvertently suturing the edge of the bowel with the hernia mesh. The bowel subsequently pulled away and injury was likely the result. I explained the intra-abdominal findings. We again discussed the length of recovery expected at this point. All questions were answered. He still has evidence of a dynamic ileus. Will continue NG tube today, NPO except ice chips, and IV fluids. Up walking today. Continue analgesics as ordered. (2) History of umbilical hernia repair: Code(s): Z98.890 - Other specified postprocedural states; Z87.19 - Personal history of other diseases of the digestive system Status: Acute (3) Peritonitis (acute) generalized: Code(s): K65.0 - Generalized (acute) peritonitis Status: Acute Assessment and Plan: Continue Levaquin and metronidazole antibiotics. Subjective Subjective Date/Time Seen: 09/20/22 13:20 Post Op day: 1 Patient reports: feels better, still having pain (Soreness but not the severe pain he was having preop), no flatus, no bowel movement and fever (Low-grade, 37.7 max) Exam Const: General: cooperative, healthy appearing, comfortable, no acute distress, alert, awake and well nourished GI: Inspection: non-distended and incision (Dressing dry and intact) GI Palp: Yes Soft to palpation and Yes Tenderness to palpation present (GI) Auscultation: absent bowel sounds Objective Data Vital Signs Vital Signs: Vital Signs - 24 hr 09/19/22 15:10 09/19/22 15:25 09/19/22 15:40 Temperature 36.4 C L Pulse Rate 115 H 117 H 118 H Respiratory Rate 16 12 12 Blood Pressure 129/82 143/100 H 148/99 H Pulse Oximetry 92 100 100 Oxygen Delivery Simple Face Mask Simple Face Mask Simple Face Mask Oxygen Flow Rate 8 8 8 09/19/22 15:55 09/19/22 16:10 09/19/22 16:25 Temperature Pulse Rate 119 H 119 H 116 H Respiratory Rate 15 14 12 Blood Pressure 144/97 H 140/95 H 133/95 H Pulse Oximetry 100 96 95 Oxygen Delivery Simple Face Mask Nasal Cannula Nasal Cannula Oxygen Flow Rate 8 2 2 09/19/22 16:40 09/19/22 17:00 09/19/22 17:15 Temperature 36.4 C 36.7 C Pulse Rate 118 H 128 H 123 H Respiratory Rate 15 16 16 Blood Pressure 137/87 137/91 H 136/91 H Pulse Oximetry 96 93 94 Oxygen Delivery Nasal Cannula Oxygen Flow Rate 2 09/19/22 17:45 09/19/22 18:12 09/19/22 18:44 Temperature 36.6 C 36.6 C Pulse Rate 119 H 117 H Respiratory Rate 18 16 Blood Pressure 149/98 H 149/98 H 123/83 Pulse Oximetry 95 96 Oxygen Delivery Oxygen Flow Rate 09/19/22 19:54 09/19/22 20:30 09/20/22 05:48 Temperature 36.5 C 36.6 C Pulse Rate 113 H 115 H Respiratory Rate 20 20 Blood Pressure 141/84 H 150/84 H Pulse Oximetry 96 96 93 Oxygen Delivery Room Air Oxygen Flow Rate 09/20/22 08:50 09/20/22 10:28 Temperature 37.2 C Pulse Rate 108 H Respiratory Rate 16 Blood Pressure 134/94 H Pulse Oximetry 93 96 Oxygen Delivery Nasal Cannula Oxygen Flow Rate 1.5 Intake/Output Intake/Output: Intake & Output 09/17/22 09/18/22 09/19/22 09/20/22 23:59 23:59 23:59 23:59 Intake Total 2400 1800 Output Total 1200 350 Balance 1200 1450 Meds/Results Medications: Active Medications Generic Name Dose Route Start Last Admin Trade Name Freq PRN Reason Stop Dose Admin Enoxaparin Sodium 40 mg 09/20/22 09:00 09/20/22 08:48 Enoxaparin 40 Mg/0.4 Ml Syringe SUB-Q 40 mg DAILY ADRIANA Administration Famotidine 20 mg 09/19/22 21:00 09/20/22 08:48
[2022-09-20 17:49] LABS: Glucose Point of Care 122 mg/dl (65-105)
[2022-09-20] MEDS: HYDROmorphone HCL INJ (*CRX) 1 MG/ML SYR 0.5 MG IV PUSH (18:52)
--- NOTE | 2022-09-20 19:01 | PC.NURSE ---
Spoke with pharmacy about patient's antibiotics. Patient lost IV access before I was able to hang 1700 flagyl or levaquin. Regained access and hung flagyl at 1852. Asked pharmacist what should be done with next dose of flagyl and levaquin for 1700. Pharmacist stated to hang next dose of flagyl at 1 AM and okay to hang 1700 levaquin when flagyl that started at 1852 is finished.
[2022-09-20 20:01] LABS: Glucose Point of Care 121 mg/dl (65-105)
[2022-09-20] MEDS: ONDANSETRON INJ 4 MG/2 ML VIAL IV PUSH (22:57)
[2022-09-21] MEDS: metroNIDAZOLE 500 MG/ISO 100ML 500 MG/100 ML BAG 100 MG IVPB ×5 (01:00→23:15)
--- NOTE | 2022-09-21 01:41 | PC.NURSE ---
Daylight Savings Time For Daylight Savings Time Ending in the Fall - Clocks are moved back. For Daylight Savings Time Beginning in the Spring - Clocks are moved ahead. For [facility], the time of change occurs at 0200 hrs. Time is taken from the casino beverage server. This entry on the patient's chart recognizes the change in time reflected during documentation. Example: 2 entries for vital signs may be charted for 0200 hrs.
[2022-09-21] MEDS: HYDROmorphone HCL INJ (*CRX) 1 MG/ML SYR IV PUSH (02:31)
[2022-09-21] MEDS: LACTATED RINGERS 1,000 ML 100 ML IV CONT ×2 (03:46→03:47)
[2022-09-21] MEDS: IBUPROFEN IV 800 MG/200 ML 800 MG/200 ML BAG 400 MG IVPB ×4 (04:39→22:06)
[2022-09-21 06:07] VITALS: BP 148/85; PULSE 108; RESP 20; TEMP 36.7; O2SAT 95
[2022-09-21 06:10] LABS: Glucose Point of Care 117 mg/dl (65-105)
--- NOTE | 2022-09-21 10:19 | PM.PNGS ---
Progress Note: A&P Assessment and Plan (1) Peritonitis (acute) generalized: Code(s): K65.0 - Generalized (acute) peritonitis Status: Acute Assessment and Plan: good that he is passing flatus but still no bowel sounds on exam. Will continue NPO except ice chips. Encouraged to continue ambulation. Start daily dressing changes today. Continue to monitor closely for signs of return bowel function or other complications from surgery. So far doing well. (2) Accidental injury of intestine during surgical procedure: Code(s): K91.81 - Other intraoperative complications of digestive system Status: Acute Assessment and Plan: Repaired, no evidence of further problems. (3) History of umbilical hernia repair: Code(s): Z98.890 - Other specified postprocedural states; Z87.19 - Personal history of other diseases of the digestive system Status: Acute Subjective Subjective Date/Time Seen: 09/21/22 10:19 Post Op day: 2 Patient reports: still having pain, flatus, no bowel movement and afebrile Interval history: Doing a lot of walking. Exam Const: General: comfortable and no acute distress; No confusion Orientation/consciousness: patient oriented x3 and No confusion GI: Inspection: Abdominal wall edema, distended and incision ( Looks good, no erythema, healing well) GI Palp: Yes Soft to palpation, Yes Tenderness to palpation present (GI) ( less tender than yesterday), No Guarding due to palpation present (GI) and No Rebound tenderness present Auscultation: absent bowel sounds Neuro: General: patient oriented x3, no focal motor deficits and No confusion Extrem: General: no calf tenderness and no edema Psych: Affect: normal affect Insight: Good insight present (Psych) Judgement: Good judgement present (Psych) Objective Data Vital Signs Vital Signs: Vital Signs - 24 hr 09/20/22 14:27 09/20/22 18:28 09/20/22 20:07 Temperature 36.6 C 37.2 C 36.8 C Pulse Rate 113 H 120 H 122 H Respiratory Rate 18 18 20 Blood Pressure 137/94 H 150/90 H 143/102 H Pulse Oximetry 96 94 93 Oxygen Delivery Oxygen Flow Rate 09/20/22 20:10 09/21/22 06:07 Temperature 36.7 C Pulse Rate 108 H Respiratory Rate 20 20 Blood Pressure 148/85 H Pulse Oximetry 90 95 Oxygen Delivery Nasal Cannula Oxygen Flow Rate 2 Intake/Output Intake/Output: Intake & Output 09/18/22 09/19/22 09/20/22 09/21/22 23:59 23:59 23:59 22:59 Intake Total 2400 3550 1300 Output Total 1200 1100 800 Balance 1200 2450 500 Meds/Results Medications: Active Medications Generic Name Dose Route Start Last Admin Trade Name Freq PRN Reason Stop Dose Admin Enoxaparin Sodium 40 mg 09/20/22 09:00 09/20/22 08:48 Enoxaparin 40 Mg/0.4 Ml Syringe SUB-Q 40 mg DAILY ADRIANA Administration Famotidine 20 mg 09/19/22 21:00 09/20/22 20:11 Famotidine 20 Mg/2 Ml Vial IV PUSH 20 mg Q12HR ADRIANA Administration Hydromorphone HCl 1 mg 09/20/22 13:20 09/21/22 02:31 Hydromorphone Hcl Inj (*Crx) 1 Mg/Ml Syr IV PUSH 1 mg Q2H PRN Administration Pain Rated 7-10 Hydromorphone HCl 0.5 mg 09/20/22 13:19 09/20/22 18:52 Hydromorphone Hcl Inj (*Crx) 1 Mg/Ml Syr IV PUSH 0.5 mg Q2H PRN Administration Pain Rated 4-6 Lactated Ringer's 1,000 mls @ 100 mls/hr 09/19/22 16:43 09/21/22 03:47 Lr - Lactated Ringers Iv IV CONT 100 mls/hr .Q10H ADRIANA Administration Ibuprofen 800 mg in 200 mls @ 400 mls/hr 09/19/22 16:43 09/21/22 05:10 Caldolor 800 Mg/200 Ml IVPB Infused Q6H ADRIANA Infusion Levofloxacin/Dextrose 750 mg in 150 mls @ 100 mls/hr 09/19/22 17:00 09/20/22 21:40 Levaquin 750 Mg/D5w 150 Ml IVPB Infused Q24H ADRIANA Infusion Metronidazole 500 mg in 100 mls @ 100 mls/hr 09/19/22 17:00 09/21/22 05:24 Flagyl 500 Mg/Iso Soln 100 Ml IVPB 100 mls/hr Q6H ADRIANA Administration Lorazepam 2 mg 09/19/22 17:27 Lorazepam Inj (*Crx) 2 Mg/Ml Vial IV PUSH
[2022-09-21] MEDS: FAMOTIDINE 20 MG/2 ML VIAL IV PUSH ×2 (10:29→20:41)
[2022-09-21] MEDS: ENOXAPARIN 40 MG/0.4 ML SYRINGE SUB-Q (10:29)
[2022-09-21] MEDS: THIAMINE HCL 200 MG/2 ML VIAL 100 MG IV PUSH (10:29)
[2022-09-21 10:30] VITALS: O2SAT 95
[2022-09-21 13:05] LABS: Glucose Point of Care 109 mg/dl (65-105)
[2022-09-21] MEDS: KCL 40 MEQ/D5/0.9% SOD CHL 1,000 ML 80 ML IV CONT (13:43)
--- NOTE | 2022-09-21 13:57 | PM.IMPN ---
Progress Note: A&P Assessment and Plan (1) Peritonitis (acute) generalized: Code(s): K65.0 - Generalized (acute) peritonitis Status: Acute (2) Accidental injury of intestine during surgical procedure: Code(s): K91.81 - Other intraoperative complications of digestive system Status: Acute (3) Daily consumption of alcohol: Code(s): Z78.9 - Other specified health status Status: Acute (4) Gastritis: Code(s): K29.70 - Gastritis, unspecified, without bleeding Status: Acute (5) Hyperlipidemia: Code(s): E78.5 - Hyperlipidemia, unspecified Status: Acute (6) Obesity (BMI 30-39.9): Code(s): E66.9 - Obesity, unspecified Status: Acute (7) GERD (gastroesophageal reflux disease): Code(s): K21.9 - Gastro-esophageal reflux disease without esophagitis Status: Acute (8) Tobacco use: Code(s): Z72.0 - Tobacco use Status: Acute (9) History of umbilical hernia repair: Code(s): Z98.890 - Other specified postprocedural states; Z87.19 - Personal history of other diseases of the digestive system Status: Acute (10) Transient elevated blood pressure: Code(s): R03.0 - Elevated blood-pressure reading, without diagnosis of hypertension Status: Acute Plan 09/19/22 ?42-year-old male? status postop day 1 after herniorrhaphy presents to the hospital with acute abdominal pain and distension. ?Admit to med surge Vital signs per protocol Continue home medications? when placed into p.o. status ?Levaquin ?metronidazole ?CIWA monitoring Consult Dr. Hernandez Postoperative orders pain management, fluids, antiemetics, and antacids per surgery 09/20/22 s/p exp lap, repair of duodenal enterotomy w peritoneal washout POD1 VS improving labs improving pain improved? but not controlled (pt not asking for pain meds intentionally) OOB to chair ambulate in hallway NGT to remain until bowel fxn regained 09/21/22 bm today +flatus ambulating tolerating ice chips NGT in place to LIS anticipate dc in am if bowel fxn cont to improve cont current care LOS 2-4 more days depending on timing of bowel fxn return Subjective Date/time seen: 09/21/22 13:57 pt feeling better, pain improved and he had a BM just before my visit Review of Systems Review of Systems: All systems reviewed & are unremarkable except as noted in HPI and below Objective Data Vital Signs Vital Signs: Vital Signs - 24 hr 09/20/22 18:28 09/20/22 20:07 09/20/22 20:10 Temperature 99 F 98.3 F Pulse Rate 120 H 122 H Respiratory Rate 18 20 20 Blood Pressure 150/90 H 143/102 H Pulse Oximetry 94 93 90 Oxygen Delivery Nasal Cannula Oxygen Flow Rate 2 09/21/22 06:07 09/21/22 10:30 Temperature 98.1 F Pulse Rate 108 H Respiratory Rate 20 Blood Pressure 148/85 H Pulse Oximetry 95 95 Oxygen Delivery Nasal Cannula Oxygen Flow Rate 1.5 Intake/Output Intake/Output: Intake & Output 09/18/22 09/19/22 09/20/22 09/21/22 23:59 23:59 23:59 22:59 Intake Total 2400 3550 1700 Output Total 1200 1100 1200 Balance 1200 2450 500 Meds/Results Medications: Active Medications Generic Name Dose Route Start Last Admin Trade Name Freq PRN Reason Stop Dose Admin Enoxaparin Sodium 40 mg 09/20/22 09:00 09/21/22 10:29 Enoxaparin 40 Mg/0.4 Ml Syringe SUB-Q 40 mg DAILY ADRIANA Administration Famotidine 20 mg 09/19/22 21:00 09/21/22 10:29 Famotidine 20 Mg/2 Ml Vial IV PUSH 20 mg Q12HR ADRIANA Administration Hydromorphone HCl 1 mg 09/20/22 13:20 09/21/22 02:31 Hydromorphone Hcl Inj (*Crx) 1 Mg/Ml Syr IV PUSH 1 mg Q2H PRN Administration Pain Rated 7-10 Hydromorphone HCl 0.5 mg 09/20/22 13:19 09/20/22 18:52 Hydromorphone Hcl Inj (*Crx) 1 Mg/Ml Syr IV PUSH 0.5 mg Q2H PRN Administration Pain Rated 4-6 Ibuprofen 800 mg in 200 mls @ 400 mls/hr 09/19/22 16:43 09/21/22 11:00 Caldolor 800 Mg/200 Ml IVPB Infused
[2022-09-21 15:11] VITALS: BP 148/90; PULSE 111; RESP 16; TEMP 36.7; O2SAT 97
--- NOTE | 2022-09-21 16:51 | PC.NURSE ---
Spoke with pharmacist to clarify if I can run levaquin, flagyl, and ibuorifen with patient's fluids which are KCl 40 Meq/D5/0.9 Sod Chl at 80/hr. Pharmacist states okay to run flagyl and levaquin with those fluids, but to run ibuprofen by itself.
[2022-09-21 18:02] LABS: Glucose Point of Care 114 mg/dl (65-105)
[2022-09-21 19:41] LABS: Appearance Urine Clear (Clear); Bilirubin Urine 1+ (Negative); Blood Urine Trace-intact (Negative); Color Urine Yellow (Yellow); Glucose Urine UA Negative (Negative); Ketones Urine 2+ mg/dL (Negative); Leukocyte Esterase Ur Trace LEU/UL (Negative); Nitrate Urine Negative (Negative); Protein Urine 2+ mg/dL (Negative); Specific Grav Ur 1.025 (1.001-1.035); Urobilinogen Urine 0.2 mg/dL (<2.0)
[2022-09-21 19:50] LABS: Bacteria Urine Trace /hpf; Mucus Urine Rare /lpf
[2022-09-21 19:51] LABS: Add Urine Microscopic? YES
[2022-09-21 20:08] LABS: Glucose Point of Care 109 mg/dl (65-105)
[2022-09-21] MEDS: ONDANSETRON INJ 4 MG/2 ML VIAL IV PUSH (21:10)
[2022-09-21] MEDS: HYDROmorphone HCL INJ (*CRX) 1 MG/ML SYR 0.5 MG IV PUSH (21:11)
[2022-09-21 21:30] VITALS: PULSE 98; RESP 18; O2SAT 97
[2022-09-22] MEDS: IBUPROFEN IV 800 MG/200 ML 800 MG/200 ML BAG 400 MG IVPB ×4 (03:51→23:27)
[2022-09-22] MEDS: metroNIDAZOLE 500 MG/ISO 100ML 500 MG/100 ML BAG 100 MG IVPB ×4 (05:14→23:00)
[2022-09-22] MEDS: KCL 40 MEQ/D5/0.9% SOD CHL 1,000 ML 80 ML IV CONT (05:15)
[2022-09-22 05:41] LABS: Hemoglobin 11.2 g/dL (14.0-18.0); Mean Corpuscular Hemoglobin 28.9 pg (26-34); Mean Corpuscular Volume 90.4 fl (80-100); Mean Platelet Volume 10.8 fl (7.4-10.4); Platelet Count Result 184 k/mm3 (150-375); Red Blood Count 3.87 M/mm3 (4.6-6.20); Red Cell Distribution Width 14.3 % (11.5-14.5); White Blood Count 7.2 K/mm3 (4.5-10.0)
[2022-09-22 05:43] LABS: Anion Gap 13 mmol/L (8-16); Blood Urea Nitrogen 19 mg/dL (9-20); Calcium 8.9 mg/dL (8.4-10.2); Carbon Dioxide 27 mmol/L (22-30); Chloride 107 mmol/L (98-107); Estimated CRCL calculation 95 ml/min; Estimated Glomerular Filt Rate > 60; Glucose 125 mg/dL (65-110); Magnesium 2.3 mg/dL (1.6-2.3); Potassium 2.9 mmol/L (3.4-5.0); Sodium 147 mmol/L (137-145)
[2022-09-22 08:19] LABS: Glucose Point of Care 115 mg/dl (65-105)
[2022-09-22] MEDS: ENOXAPARIN 40 MG/0.4 ML SYRINGE SUB-Q (10:08)
[2022-09-22] MEDS: FAMOTIDINE 20 MG/2 ML VIAL IV PUSH ×2 (10:09→20:30)
[2022-09-22] MEDS: THIAMINE HCL 200 MG/2 ML VIAL 100 MG IV PUSH (10:09)
[2022-09-22 10:15] VITALS: O2SAT 96
--- NOTE | 2022-09-22 11:09 | PM.PNGS ---
Progress Note: A&P Assessment and Plan (1) Peritonitis (acute) generalized: Code(s): K65.0 - Generalized (acute) peritonitis Status: Acute Assessment and Plan: Improving with better bowel sounds today and bowel function returning. Will remove NG tube and start clear liquids. Continue daily dressing changes and may shower today. WBC down to normal today. Continue IV antibiotics. Potassium low at 2.9, this is being replaced. Repeat labs tomorrow. (2) Accidental injury of intestine during surgical procedure: Code(s): K91.81 - Other intraoperative complications of digestive system Status: Acute Assessment and Plan: Repaired, no evidence of further problems. (3) History of umbilical hernia repair: Code(s): Z98.890 - Other specified postprocedural states; Z87.19 - Personal history of other diseases of the digestive system Status: Acute Plan I have discussed the patient's case and plan of care with Dr. Hernandez. Subjective Subjective Date/Time Seen: 09/22/22 09:09 Patient reports: no new complaints, feels better, flatus, bowel movement (yesterday) and afebrile Interval history: 09/18/22 - Umbilical hernia repair 09/19/22 - Repair small bowel enterotomy Patient seen and examined. Chart reviewed. He has an NG tube in place this morning. He is passing lots of gas and had a BM yesterday. He reports feeling better today than yesterday. His post-op pain is being controlled with current analgesics. No other complaints at this time. Review of Systems Review of Systems: All systems reviewed & are unremarkable except as noted in HPI and below Constitutional: Constitutional: Reports no additional constitutional complaints, Denies fever(s) and Denies headache(s) Cardiovascular: Cardiovascular: Reports no additional cardiovascular complaints and Denies chest pain Respiratory: Respiratory: Reports no additional respiratory complaints, Denies cough and Denies dyspnea Gastrointestinal: Gastrointestinal: Reports as per HPI and Reports no additional gastrointestinal complaints Exam Const: General: comfortable, no acute distress and awake Orientation/consciousness: patient oriented x3 GI: Inspection: distended GI Palp: Yes Soft to palpation, Yes Tenderness to palpation present (GI) (incisional) and No Guarding due to palpation present (GI) Auscultation: normal bowel sounds Other: incision healing with minimal serosanguineous drainage around umbilicus, slightly pink around center of incision, christian intact Neuro: General: no focal motor deficits and No confusion Extrem: General: no calf tenderness and no edema Psych: Thought process: Normal thought process present Insight: Good insight present (Psych) Objective Data Vital Signs Vital Signs: Vital Signs - 24 hr 09/21/22 15:11 09/21/22 21:30 09/22/22 10:15 Temperature 98.1 F Pulse Rate 111 H 98 Respiratory Rate 16 18 Blood Pressure 148/90 H Pulse Oximetry 97 97 96 Oxygen Delivery Nasal Cannula Room Air Oxygen Flow Rate 1 Intake/Output Intake/Output: Intake & Output 09/20/22 09/21/22 09/21/22 09/22/22 00:59 00:59 23:59 23:59 Intake Total 1760 Output Total 600 Balance 1160 Meds/Results Medications: Active Medications Generic Name Dose Route Start Last Admin Trade Name Freq PRN Reason Stop Dose Admin Acetaminophen 500 mg 09/22/22 08:40 Acetaminophen 500 Mg Tablet PO Q6H PRN Mild Pain (1-3) or Fever Enoxaparin Sodium 40 mg 09/20/22 09:00 09/22/22 10:08 Enoxaparin 40 Mg/0.4 Ml Syringe SUB-Q 40 mg DAILY ADRIANA Administration Famotidine 20 mg 09/19/22 21:00 09/22/22 10:09 Famotidine 20 Mg/2 Ml Vial IV PUSH 20 mg Q12HR ADRIANA Administration Hydromorphone HCl 1 mg 09/20/22 13:20 09/21/22 02:31 Hydromorphone Hcl Inj (*Crx) 1 Mg/Ml Syr IV PUSH 1 mg Q2H PRN Administration Pain Rated 7-10 Hydromorphone HCl 0.5 mg 09/20/22 13:19 09/21/22 21:11
--- NOTE | 2022-09-22 11:10 | PC.NURSE ---
Spoke with pharmacy to clarify if I can run IV ibuprofen with fluids. They said as long as they are run piggyback and not concurrently, it is okay.
--- NOTE | 2022-09-22 12:45 | PM.IMPN ---
Progress Note: A&P Assessment and Plan (1) Peritonitis (acute) generalized: Code(s): K65.0 - Generalized (acute) peritonitis Status: Acute (2) Accidental injury of intestine during surgical procedure: Code(s): K91.81 - Other intraoperative complications of digestive system Status: Acute (3) Daily consumption of alcohol: Code(s): Z78.9 - Other specified health status Status: Acute (4) Gastritis: Code(s): K29.70 - Gastritis, unspecified, without bleeding Status: Acute (5) Hyperlipidemia: Code(s): E78.5 - Hyperlipidemia, unspecified Status: Acute (6) Obesity (BMI 30-39.9): Code(s): E66.9 - Obesity, unspecified Status: Acute (7) GERD (gastroesophageal reflux disease): Code(s): K21.9 - Gastro-esophageal reflux disease without esophagitis Status: Acute (8) Tobacco use: Code(s): Z72.0 - Tobacco use Status: Acute (9) History of umbilical hernia repair: Code(s): Z98.890 - Other specified postprocedural states; Z87.19 - Personal history of other diseases of the digestive system Status: Acute (10) Transient elevated blood pressure: Code(s): R03.0 - Elevated blood-pressure reading, without diagnosis of hypertension Status: Acute Plan 09/19/22 ?42-year-old male? status postop day 1 after herniorrhaphy presents to the hospital with acute abdominal pain and distension. ?Admit to med surge Vital signs per protocol Continue home medications? when placed into p.o. status ?Levaquin ?metronidazole ?CIWA monitoring Consult Dr. Hernandez Postoperative orders pain management, fluids, antiemetics, and antacids per surgery 09/20/22 s/p exp lap, repair of duodenal enterotomy w peritoneal washout POD1 VS improving labs improving pain improved? but not controlled (pt not asking for pain meds intentionally) OOB to chair ambulate in hallway NGT to remain until bowel fxn regained 09/21/22 bm today +flatus ambulating tolerating ice chips NGT in place to LIS anticipate dc in am if bowel fxn cont to improve cont current care LOS 2-4 more days depending on timing of bowel fxn return 09/22/22 bs present pt w BM today NGT out CLD pain controlled cont to encourage mobilization am labs Subjective Date/time seen: 09/22/22 12:45 pt doing much better NGT out tolerating ice water stooling and ambulating Review of Systems Review of Systems: All systems reviewed & are unremarkable except as noted in HPI and below Exam Narrative: Const:?? General: NAD comfo rtable resting HENMT:?? Face/Nose/Sinus: N ormal nares presen t and no epistaxis ? Mouth: Yes moist mucous membranes, NGT present Eyes:?? General: appearanc e normal, both eye s and all related structures? EOM: E OMs intact bilater ally Neck:?? Neck: supple and n o JVD Resp:?? Effort & Inspectio n: normal respirat ory effort? Auscul tation: clear to a uscultation bilate rally, no rhonchi and no wheezes Cardio:?? Rate: regular rate ? Rhythm: regular rhythm GI:?? Inspection: disten ded? GI Palp: Yes soft to palpation present (GI), Yes Tenderness to palp ation present (GI) and No Guarding due to palpation p resent (GI)? Auscu ltation: abnormal bowel sounds Skin:?? General sk
[2022-09-22 15:20] VITALS: BP 151/98; PULSE 93; RESP 18; TEMP 37.2
[2022-09-22] MEDS: POTASSIUM CHLORIDE 20 MEQ TABLET.ER 40 MEQ PO (17:39)
[2022-09-22 18:33] LABS: Glucose Point of Care 127 mg/dl (65-105)
[2022-09-22 21:15] VITALS: O2SAT 95
[2022-09-22] MEDS: ONDANSETRON INJ 4 MG/2 ML VIAL IV PUSH (21:29)
[2022-09-22] MEDS: oxyCODONE/ACETAMINOPHEN (*CRX) 5-325 MG TABLET 1 TABLET PO (21:30)
[2022-09-23] MEDS: IBUPROFEN IV 800 MG/200 ML 800 MG/200 ML BAG 400 MG IVPB ×4 (04:25→22:37)
[2022-09-23] MEDS: metroNIDAZOLE 500 MG/ISO 100ML 500 MG/100 ML BAG 100 MG IVPB ×4 (05:17→23:11)
[2022-09-23 06:10] LABS: Hematocrit 33.8 % (42.0-52.0); Mean Corpuscular HGB Conc 32.5 g/dl (32-36); Mean Corpuscular Hemoglobin 28.9 pg (26-34); Mean Corpuscular Volume 88.7 fl (80-100); Mean Platelet Volume 10.7 fl (7.4-10.4); Platelet Count Result 169 k/mm3 (150-375); Red Blood Count 3.81 M/mm3 (4.6-6.20); Red Cell Distribution Width 14.6 % (11.5-14.5); White Blood Count 6.2 K/mm3 (4.5-10.0)
[2022-09-23 06:30] LABS: Anion Gap 13 mmol/L (8-16); Blood Urea Nitrogen 17 mg/dL (9-20); Calcium 8.5 mg/dL (8.4-10.2); Carbon Dioxide 26 mmol/L (22-30); Chloride 103 mmol/L (98-107); Estimated CRCL calculation 104 ml/min; Estimated Glomerular Filt Rate > 60; Glucose 106 mg/dL (65-110); Potassium 3.1 mmol/L (3.4-5.0); Sodium 142 mmol/L (137-145)
--- NOTE | 2022-09-23 07:02 | PM.PNGS ---
Progress Note: A&P Assessment and Plan (1) Accidental injury of intestine during surgical procedure: Code(s): K91.81 - Other intraoperative complications of digestive system Status: Acute Assessment and Plan: enterotomy repaired at surgery 4 days ago. Bowel function returning nicely. Will advance diet to low fiber. Continue IV antibiotics. Will need to remove a couple of christian from abdominal incision and release any fluid collection noted from that. Will come back later today to do this. (2) Peritonitis (acute) generalized: Code(s): K65.0 - Generalized (acute) peritonitis Status: Acute Assessment and Plan: Resolving. Continue IV antibiotics. (3) Hypokalemia: Code(s): E87.6 - Hypokalemia Status: Acute Assessment and Plan: Improving but still low. Continue supplementation. (4) History of umbilical hernia repair: Code(s): Z98.890 - Other specified postprocedural states; Z87.19 - Personal history of other diseases of the digestive system Status: Acute Subjective Subjective Date/Time Seen: 09/23/22 07:02 Post Op day: 4 Patient reports: no new complaints, feels better, tolerating liquids well, bowel movement and afebrile Exam GI: Inspection: incision ( Drainage between christian above umbilicus, some at the umbilicus. ) and other ( no wound erythema or tenderness) GI Palp: Yes Soft to palpation and Yes Tenderness to palpation present (GI) ( mild appropriate postoperative tenderness) Auscultation: normoactive bowel sounds Objective Data Vital Signs Vital Signs: Vital Signs - 24 hr 09/22/22 10:15 09/22/22 15:20 09/22/22 21:15 Temperature 37.2 C Pulse Rate 93 Respiratory Rate 18 Blood Pressure 151/98 H Pulse Oximetry 96 95 Oxygen Delivery Room Air Room Air Intake/Output Intake/Output: Intake & Output 09/21/22 09/21/22 09/22/22 09/23/22 00:59 23:59 23:59 23:59 Intake Total 4830 1500 Output Total 600 400 Balance 4230 1100 Meds/Results Medications: Active Medications Generic Name Dose Route Start Last Admin Trade Name Freq PRN Reason Stop Dose Admin Acetaminophen 500 mg 09/22/22 08:40 Acetaminophen 500 Mg Tablet PO Q6H PRN Mild Pain (1-3) or Fever Enoxaparin Sodium 40 mg 09/20/22 09:00 09/22/22 10:08 Enoxaparin 40 Mg/0.4 Ml Syringe SUB-Q 40 mg DAILY ADRIANA Administration Famotidine 20 mg 09/19/22 21:00 09/22/22 20:30 Famotidine 20 Mg/2 Ml Vial IV PUSH 20 mg Q12HR ADRIANA Administration Hydromorphone HCl 1 mg 09/20/22 13:20 09/21/22 02:31 Hydromorphone Hcl Inj (*Crx) 1 Mg/Ml Syr IV PUSH 1 mg Q2H PRN Administration Pain Rated 7-10 Hydromorphone HCl 0.5 mg 09/20/22 13:19 09/21/22 21:11 Hydromorphone Hcl Inj (*Crx) 1 Mg/Ml Syr IV PUSH 0.5 mg Q2H PRN Administration Pain Rated 4-6 Ibuprofen 800 mg in 200 mls @ 400 mls/hr 09/19/22 16:43 09/23/22 04:55 Caldolor 800 Mg/200 Ml IVPB Infused Q6H ADRIANA Infusion Levofloxacin/Dextrose 750 mg in 150 mls @ 100 mls/hr 09/19/22 17:00 09/22/22 20:15 Levaquin 750 Mg/D5w 150 Ml IVPB Infused Q24H ADRIANA Infusion Metronidazole 500 mg in 100 mls @ 100 mls/hr 09/19/22 17:00 09/23/22 05:17 Flagyl 500 Mg/Iso Soln 100 Ml IVPB 100 mls/hr Q6H ADRIANA Administration Lorazepam 2 mg 09/19/22 17:27 Lorazepam Inj (*Crx) 2 Mg/Ml Vial IV PUSH Q4H PRN Withdrawal Naloxone HCl 0.1 mg 09/19/22 16:43 Naloxone Hcl 0.4 Mg/Ml Vial IV PUSH Q2M PRN Opiate Reversal Ondansetron HCl 4 mg 09/19/22 17:27 09/22/22 21:29 Ondansetron Inj 4 Mg/2 Ml Vial IV PUSH 4 mg Q6H PRN Administration Nausea And Vomiting Oxycodone/Acetaminophen 1 tablet 09/22/22 08:40 09/22/22 21:30 Oxycodone/Acetaminophen (*Crx) 5-325 Mg Tablet PO 1 tablet Q4H PRN Administration Pain Rated 4-6 Potassium Chloride 40 meq 09/22/22 17:00 09/22/22 17:39 Potassium Chloride 20 M
[2022-09-23] MEDS: oxyCODONE/ACETAMINOPHEN (*CRX) 5-325 MG TABLET 1 TABLET PO (07:57)
[2022-09-23] MEDS: POTASSIUM CHLORIDE 20 MEQ TABLET.ER 40 MEQ PO ×2 (08:12→18:46)
[2022-09-23] MEDS: ENOXAPARIN 40 MG/0.4 ML SYRINGE SUB-Q (08:12)
[2022-09-23] MEDS: FAMOTIDINE 20 MG/2 ML VIAL IV PUSH ×2 (08:13→20:59)
--- NOTE | 2022-09-23 10:11 | PM.PNGS ---
Progress Note: A&P Assessment and Plan (1) Accidental injury of intestine during surgical procedure: Code(s): K91.81 - Other intraoperative complications of digestive system Status: Acute Assessment and Plan: Dr. Hernandez and myself returned this morning for staple removal. A few christian were removed above the umbilicus and the fluid collection was adequately drained. The two areas that were draining did communicate and were opened. We irrigated the wound with hydrogen peroxide and packed with 4x4 gauze. Will reassess again tomorrow. Continue IV antibiotics. (2) Peritonitis (acute) generalized: Code(s): K65.0 - Generalized (acute) peritonitis Status: Acute (3) History of umbilical hernia repair: Code(s): Z98.890 - Other specified postprocedural states; Z87.19 - Personal history of other diseases of the digestive system Status: Acute Plan Dr. Hernandez was present and removed christian as mentioned above. Subjective Subjective Date/Time Seen: 09/23/22 10:11 Patient reports: no new complaints, tolerating liquids well, voiding w/o difficulty and afebrile Interval history: Patient seen with Dr. Hernandez at the bedside to remove some christian and evaluate his incision further. No new complaints since seen this morning by Dr. Hernandez. Exam Const: General: no acute distress and alert Orientation/consciousness: patient oriented x3 GI: Other: Incision with some purulent drainage coming from above the umbilicus and a small area at the upper midline portion of the incision. Few christian removed in both areas where the incision was draining. There was a fluid collection with purulent drainage and these two areas communicated with further inspection. The remaining staple in between the two openings was then removed. After adequate drainage, the wound was irrigated with hydrogen peroxide and packed with gauze. New clean dressing was applied with 4x4 gauze and an ABD. Remaining lower portion of the incision was dry and intact. Objective Data Vital Signs Vital Signs: Vital Signs - 24 hr 09/22/22 10:15 09/22/22 15:20 09/22/22 21:15 Temperature 98.9 F Pulse Rate 93 Respiratory Rate 18 Blood Pressure 151/98 H Pulse Oximetry 96 95 Oxygen Delivery Room Air Room Air Intake/Output Intake/Output: Intake & Output 09/21/22 09/21/22 09/22/22 09/23/22 00:59 23:59 23:59 23:59 Intake Total 4830 1500 Output Total 600 400 Balance 4230 1100 Meds/Results Medications: Active Medications Generic Name Dose Route Start Last Admin Trade Name Freq PRN Reason Stop Dose Admin Acetaminophen 500 mg 09/22/22 08:40 Acetaminophen 500 Mg Tablet PO Q6H PRN Mild Pain (1-3) or Fever Enoxaparin Sodium 40 mg 09/20/22 09:00 09/23/22 08:12 Enoxaparin 40 Mg/0.4 Ml Syringe SUB-Q 40 mg DAILY ADRIANA Administration Famotidine 20 mg 09/19/22 21:00 09/23/22 08:13 Famotidine 20 Mg/2 Ml Vial IV PUSH 20 mg Q12HR ADRIANA Administration Hydromorphone HCl 1 mg 09/20/22 13:20 09/21/22 02:31 Hydromorphone Hcl Inj (*Crx) 1 Mg/Ml Syr IV PUSH 1 mg Q2H PRN Administration Pain Rated 7-10 Hydromorphone HCl 0.5 mg 09/20/22 13:19 09/21/22 21:11 Hydromorphone Hcl Inj (*Crx) 1 Mg/Ml Syr IV PUSH 0.5 mg Q2H PRN Administration Pain Rated 4-6 Ibuprofen 800 mg in 200 mls @ 400 mls/hr 09/19/22 16:43 09/23/22 04:55 Caldolor 800 Mg/200 Ml IVPB Infused Q6H ADRIANA Infusion Levofloxacin/Dextrose 750 mg in 150 mls @ 100 mls/hr 09/19/22 17:00 09/22/22 20:15 Levaquin 750 Mg/D5w 150 Ml IVPB Infused Q24H ADRIANA Infusion Metronidazole 500 mg in 100 mls @ 100 mls/hr 09/19/22 17:00 09/23/22 05:17 Flagyl 500 Mg/Iso Soln 100 Ml IVPB 100 mls/hr Q6H ADRIANA Administration Lorazepam 2 mg 09/19/22 17:27 Lorazepam Inj (*Crx) 2 Mg/Ml Vial IV PUSH Q4H PRN Withdrawal Naloxone HCl 0.1 mg 09/19/22 16:43 Naloxone Hcl 0.4 Mg/Ml Vial IV PUSH Q2
[2022-09-23] MEDS: THIAMINE HCL 200 MG/2 ML VIAL 100 MG IV PUSH (11:21)
--- NOTE | 2022-09-23 11:52 | PM.IMPN ---
Progress Note: A&P Assessment and Plan (1) Peritonitis (acute) generalized: Code(s): K65.0 - Generalized (acute) peritonitis Status: Acute (2) Accidental injury of intestine during surgical procedure: Code(s): K91.81 - Other intraoperative complications of digestive system Status: Acute (3) Daily consumption of alcohol: Code(s): Z78.9 - Other specified health status Status: Acute (4) Gastritis: Code(s): K29.70 - Gastritis, unspecified, without bleeding Status: Acute (5) Hyperlipidemia: Code(s): E78.5 - Hyperlipidemia, unspecified Status: Acute (6) Obesity (BMI 30-39.9): Code(s): E66.9 - Obesity, unspecified Status: Acute (7) GERD (gastroesophageal reflux disease): Code(s): K21.9 - Gastro-esophageal reflux disease without esophagitis Status: Acute (8) Tobacco use: Code(s): Z72.0 - Tobacco use Status: Acute (9) History of umbilical hernia repair: Code(s): Z98.890 - Other specified postprocedural states; Z87.19 - Personal history of other diseases of the digestive system Status: Acute (10) Transient elevated blood pressure: Code(s): R03.0 - Elevated blood-pressure reading, without diagnosis of hypertension Status: Acute (11) Hypokalemia: Code(s): E87.6 - Hypokalemia Status: Acute Plan 09/19/22 ?42-year-old male? status postop day 1 after herniorrhaphy presents to the hospital with acute abdominal pain and distension. ?Admit to med surge Vital signs per protocol Continue home medications? when placed into p.o. status ?Levaquin ?metronidazole ?CIWA monitoring Consult Dr. Hernandez Postoperative orders pain management, fluids, antiemetics, and antacids per surgery 09/20/22 s/p exp lap, repair of duodenal enterotomy w peritoneal washout POD1 VS improving labs improving pain improved? but not controlled (pt not asking for pain meds intentionally) OOB to chair ambulate in hallway NGT to remain until bowel fxn regained 09/21/22 bm today +flatus ambulating tolerating ice chips NGT in place to LIS anticipate dc in am if bowel fxn cont to improve cont current care LOS 2-4 more days depending on timing of bowel fxn return 09/22/22 bs present pt w BM today NGT out CLD pain controlled cont to encourage mobilization am labs 09/23/2022 potassium repletion today patient has tolerated full liquid diet and is now advanced to GI soft pain is controlled ambulate as tolerated anticipate discharge in 24-48 hours when cleared by surgery Subjective Date/time seen: 09/23/22 11:52 patient doing very well reports that he feels fatigued but denies any abdominal pain or other concerns he is tolerating his diet and looking forward to having a general soft diet for lunch Review of Systems Review of Systems: All systems reviewed & are unremarkable except as noted in HPI and below Exam Narrative: Const:?? General: NAD comfo rtable resting HENMT:?? Face/Nose/Sinus: N ormal nares presen t and no epistaxis ? Mouth: Yes moist mucous membranes Eyes:?? General: appearanc e normal, both eye s and all related structures? EOM: E OMs intact bilater ally Neck:?? Neck: supple and n o JVD Resp:?? Effort & Inspectio n: normal respirat ory effort? Auscul tation: clear to a uscultation bilate rally, no rhonchi and no wheezes Cardio:?? Rate: regular rate ? Rhythm: regular rhythm GI:?? Inspection: disten ded? GI Palp: Yes
[2022-09-23] MEDS: ONDANSETRON INJ 4 MG/2 ML VIAL IV PUSH (19:01)
[2022-09-24] MEDS: IBUPROFEN IV 800 MG/200 ML 800 MG/200 ML BAG 400 MG IVPB (04:28)
[2022-09-24] MEDS: metroNIDAZOLE 500 MG/ISO 100ML 500 MG/100 ML BAG 100 MG IVPB ×3 (05:02→22:22)
[2022-09-24 05:40] LABS: Hematocrit 34.4 % (42.0-52.0); Hemoglobin 11.7 g/dL (14.0-18.0); Mean Corpuscular Hemoglobin 28.9 pg (26-34); Mean Corpuscular Volume 84.9 fl (80-100); Mean Platelet Volume 10.5 fl (7.4-10.4); Platelet Count Result 192 k/mm3 (150-375); Red Blood Count 4.05 M/mm3 (4.6-6.20); White Blood Count 7.6 K/mm3 (4.5-10.0)
[2022-09-24 05:55] LABS: Anion Gap 11 mmol/L (8-16); Blood Urea Nitrogen 15 mg/dL (9-20); Calcium 8.6 mg/dL (8.4-10.2); Carbon Dioxide 25 mmol/L (22-30); Chloride 101 mmol/L (98-107); Estimated CRCL calculation 115 ml/min; Estimated Glomerular Filt Rate > 60; Glucose 117 mg/dL (65-110); Potassium 3.3 mmol/L (3.4-5.0); Sodium 137 mmol/L (137-145)
--- NOTE | 2022-09-24 08:31 | PM.PNGS ---
Progress Note: A&P Assessment and Plan (1) Accidental injury of intestine during surgical procedure: Code(s): K91.81 - Other intraoperative complications of digestive system Status: Acute Assessment and Plan: Bowel function returned but open area of wound will require post discharge wound care. Will consult wound ostomy nurses for the evaluation and recommendation. Looks much lamp cleaner street light today. Not sure patient or his will be able to pack the wound at home. (2) Peritonitis (acute) generalized: Code(s): K65.0 - Generalized (acute) peritonitis Status: Acute Assessment and Plan: Much improved. Bowel function returned. Continue IV antibiotics. (3) Hypokalemia: Code(s): E87.6 - Hypokalemia Status: Acute Assessment and Plan: Improving. Continue supplementation. (4) History of umbilical hernia repair: Code(s): Z98.890 - Other specified postprocedural states; Z87.19 - Personal history of other diseases of the digestive system Status: Chronic Subjective Subjective Date/Time Seen: 09/24/22 08:31 Post Op day: 5 Patient reports: no new complaints, pain is less, bowel movement and afebrile Exam Const: General: comfortable and no acute distress; No confusion Orientation/consciousness: patient oriented x3 and No confusion GI: Inspection: non-distended, incision (Open area clean with no further purulence.) and other (Irrigated open wound with peroxide and repacked with 4x4s, re-dressed.) GI Palp: Yes Soft to palpation, Yes Tenderness to palpation present (GI), No Guarding due to palpation present (GI) and No Rebound tenderness present Auscultation: normal bowel sounds Neuro: General: patient oriented x3, no focal motor deficits and No confusion Extrem: General: no calf tenderness and no edema Psych: Affect: normal affect Insight: Good insight present (Psych) Judgement: Good judgement present (Psych) Objective Data Intake/Output Intake/Output: Intake & Output 09/21/22 09/22/22 09/23/22 09/24/22 23:59 23:59 23:59 23:59 Intake Total 4830 3390 400 Output Total 600 400 Balance 4230 2990 400 Meds/Results Medications: Active Medications Generic Name Dose Route Start Last Admin Trade Name Freq PRN Reason Stop Dose Admin Acetaminophen 500 mg 09/22/22 08:40 Acetaminophen 500 Mg Tablet PO Q6H PRN Mild Pain (1-3) or Fever Hydrocodone Bitart/Acetaminophen 1 tab 09/24/22 08:27 Hydrocodone/Acetaminophen (*Crx) 5-325 Mg Tablet PO Q4H PRN Pain Rated 4-6 Hydrocodone Bitart/Acetaminophen 1 tab 09/24/22 08:27 Hydrocodone/Acetaminophen (*Crx) 10-325 Mg Tablet PO Q6H PRN Pain Rated 7-10 Enoxaparin Sodium 40 mg 09/20/22 09:00 09/23/22 08:12 Enoxaparin 40 Mg/0.4 Ml Syringe SUB-Q 40 mg DAILY ADRIANA Administration Famotidine 20 mg 09/24/22 09:00 Famotidine 20 Mg Tablet PO Q12HR ADRIANA Hydromorphone HCl 1 mg 09/20/22 13:20 09/21/22 02:31 Hydromorphone Hcl Inj (*Crx) 1 Mg/Ml Syr IV PUSH 1 mg Q2H PRN Administration Pain Rated 7-10 Hydromorphone HCl 0.5 mg 09/20/22 13:19 09/21/22 21:11 Hydromorphone Hcl Inj (*Crx) 1 Mg/Ml Syr IV PUSH 0.5 mg Q2H PRN Administration Pain Rated 4-6 Ibuprofen 800 mg in 200 mls @ 400 mls/hr 09/19/22 16:43 09/24/22 04:58 Caldolor 800 Mg/200 Ml IVPB Infused Q6H ADRIANA Infusion Levofloxacin/Dextrose 750 mg in 150 mls @ 100 mls/hr 09/19/22 17:00 09/23/22 18:31 Levaquin 750 Mg/D5w 150 Ml IVPB Infused Q24H ADRIANA Infusion Metronidazole 500 mg in 100 mls @ 100 mls/hr 09/19/22 17:00 09/24/22 06:02 Flagyl 500 Mg/Iso Soln 100 Ml IVPB Infused Q6H ADRIANA Infusion Lorazepam 2 mg 09/19/22 17:27 Lorazepam Inj (*Crx) 2 Mg/Ml Vial IV PUSH Q4H PRN Withdrawal Naloxone HCl 0.1 mg 09/19/22 16:43 Naloxone Hcl 0.4 Mg/Ml Vial IV PUSH Q2M PRN Opiate Reversal Ondansetron HCl 4 mg 09/19/22 17:27
[2022-09-24] MEDS: POTASSIUM CHLORIDE 20 MEQ TABLET.ER 40 MEQ PO ×2 (08:47→17:46)
[2022-09-24] MEDS: ENOXAPARIN 40 MG/0.4 ML SYRINGE SUB-Q (08:48)
[2022-09-24] MEDS: FAMOTIDINE 20 MG TABLET PO ×2 (08:57→20:49)
--- NOTE | 2022-09-24 11:13 | PM.IMPN ---
Progress Note: A&P Assessment and Plan (1) Peritonitis (acute) generalized: Code(s): K65.0 - Generalized (acute) peritonitis Status: Acute (2) Accidental injury of intestine during surgical procedure: Code(s): K91.81 - Other intraoperative complications of digestive system Status: Acute (3) History of umbilical hernia repair: Code(s): Z98.890 - Other specified postprocedural states; Z87.19 - Personal history of other diseases of the digestive system Status: Chronic (4) Daily consumption of alcohol: Code(s): Z78.9 - Other specified health status Status: Acute (5) Gastritis: Code(s): K29.70 - Gastritis, unspecified, without bleeding Status: Acute (6) Hyperlipidemia: Code(s): E78.5 - Hyperlipidemia, unspecified Status: Acute (7) Obesity (BMI 30-39.9): Code(s): E66.9 - Obesity, unspecified Status: Acute (8) GERD (gastroesophageal reflux disease): Code(s): K21.9 - Gastro-esophageal reflux disease without esophagitis Status: Acute (9) Tobacco use: Code(s): Z72.0 - Tobacco use Status: Acute (10) Transient elevated blood pressure: Code(s): R03.0 - Elevated blood-pressure reading, without diagnosis of hypertension Status: Acute (11) Hypokalemia: Code(s): E87.6 - Hypokalemia Status: Acute Plan 09/19/22 ?42-year-old male? status postop day 1 after herniorrhaphy presents to the hospital with acute abdominal pain and distension. ?Admit to med surge Vital signs per protocol Continue home medications? when placed into p.o. status ?Levaquin ?metronidazole ?CIWA monitoring Consult Dr. Hernandez Postoperative orders pain management, fluids, antiemetics, and antacids per surgery 09/20/22 s/p exp lap, repair of duodenal enterotomy w peritoneal washout POD1 VS improving labs improving pain improved? but not controlled (pt not asking for pain meds intentionally) OOB to chair ambulate in hallway NGT to remain until bowel fxn regained 09/21/22 bm today +flatus ambulating tolerating ice chips NGT in place to LIS anticipate dc in am if bowel fxn cont to improve cont current care LOS 2-4 more days depending on timing of bowel fxn return 09/22/22 bs present pt w BM today NGT out CLD pain controlled cont to encourage mobilization am labs 09/23/2022 potassium repletion today patient has tolerated full liquid diet and is now advanced to GI soft pain is controlled ambulate as tolerated anticipate discharge in 24-48 hours when cleared by surgery 09/24/22 Potassium slightly low at 3.3 but currently on oral replacement. Pain is much better controlled. Currently on Levaquin and Flagyl and is tolerating this well. He was educated about the benefits of abstaining from alcohol use. He is on scheduled ibuprofen. He is on gastric prophylaxis with Pepcid. Continue thiamine. Check lower extremity venous Dopplers. Continue routine postoperative care. Will continue to follow along with you. Subjective Date/time seen: 09/24/22 11:13 Interval history: 42yo male with GERD, tobacco abuse here for post-operative abdominal pain after a laparoscopic hernia repair and found to have peritonitis. Assuming care. Chart reviewed. Patient's abdominal pain is much improved. He has not had pain medications for the past 24 hours. He is passing flatus and bowel movements. He is having urinary frequency. no dysuria or hematuria Exam Narrative: AF 98.9 151/98 93 18 95% ra Gen - NARD Chest - CTA bilaterally, nml RR CV - RRR S1/S2 Abd -Soft. Nondistended. Positive bowel sounds. Dressing is clean, dry and intact. Ext - Trace pretibial edema. Positive Homans sign left> right. Psych - Nml mood and affect Skin - Warm and dry Objective Data Intake/Output Intake/Output: Intake & Output 09/21/22 09/22/22 09/23/22 09/24/22 23:59 23:59 23:59 23:59 Intake Total 9880 3760 640 Outpu
--- NOTE | 2022-09-24 11:57 | PC.NURSE ---
student nurse charting reviewed by senior mortgage underwriter
[2022-09-24 15:48] VITALS: BP 150/98; PULSE 91; RESP 18; TEMP 36.6; O2SAT 98
[2022-09-24] MEDS: HYDROcodone/acetaminophen (*CRX) 5-325 MG TABLET 1 TAB PO ×2 (15:52→22:22)
[2022-09-25] VITALS: BP 149/88; PULSE 100; RESP 18; TEMP 35.9; O2SAT 99
[2022-09-25] MEDS: metroNIDAZOLE 500 MG/ISO 100ML 500 MG/100 ML BAG 100 MG IVPB ×2 (06:11→10:52)
[2022-09-25 06:51] LABS: Hematocrit 38.5 % (42.0-52.0); Mean Corpuscular HGB Conc 33.8 g/dl (32-36); Mean Corpuscular Volume 85.9 fl (80-100); Mean Platelet Volume 10.6 fl (7.4-10.4); Platelet Count Result 228 k/mm3 (150-375); Red Blood Count 4.48 M/mm3 (4.6-6.20); White Blood Count 10.6 K/mm3 (4.5-10.0)
[2022-09-25 07:07] LABS: Anion Gap 12 mmol/L (8-16); Blood Urea Nitrogen 13 mg/dL (9-20); Calcium 8.6 mg/dL (8.4-10.2); Carbon Dioxide 24 mmol/L (22-30); Chloride 100 mmol/L (98-107); Estimated CRCL calculation 104 ml/min; Estimated Glomerular Filt Rate > 60; Glucose 113 mg/dL (65-110); Potassium 3.5 mmol/L (3.4-5.0); Sodium 136 mmol/L (137-145)
[2022-09-25] MEDS: POTASSIUM CHLORIDE 20 MEQ TABLET.ER 40 MEQ PO (09:14)
[2022-09-25] MEDS: FAMOTIDINE 20 MG TABLET PO (09:14)
[2022-09-25] MEDS: ENOXAPARIN 40 MG/0.4 ML SYRINGE SUB-Q (09:14)
--- NOTE | 2022-09-25 13:13 | PM.PNGS ---
Progress Note: A&P Assessment and Plan (1) Accidental injury of intestine during surgical procedure: Code(s): K91.81 - Other intraoperative complications of digestive system Status: Acute Assessment and Plan: Patient continues to improve. He is tolerating his diet. Pain is controlled. He now has a wound vac to his open wound at the incision. We are awaiting approval from insurance to have the wound vac continued at home. He is set up with [facility] for wound vac dressing changes. Hopefully, he could discharge later today or tomorrow once we have wound vac approval. (2) Peritonitis (acute) generalized: Code(s): K65.0 - Generalized (acute) peritonitis Status: Acute Assessment and Plan: Much improved. Bowel function returned. Will switch to oral antibiotics on discharge. (3) Hypokalemia: Code(s): E87.6 - Hypokalemia Status: Acute Assessment and Plan: Improving. Continue supplementation. (4) History of umbilical hernia repair: Code(s): Z98.890 - Other specified postprocedural states; Z87.19 - Personal history of other diseases of the digestive system Status: Chronic Plan I have discussed the patient's case and plan of care with Dr. Hernandez. Subjective Subjective Date/Time Seen: 09/25/22 13:13 Interval history: 09/18/22 - Umbilical hernia repair 09/19/22 - Repair small bowel enterotomy Patient doing well today. He is feeling well without any new complaints. Tolerating a regular diet. Bowels are moving. No nausea or vomiting. Pain is well controlled. Wound vac in place and no reported complications overnight. Review of Systems Review of Systems: All systems reviewed & are unremarkable except as noted in HPI and below Exam Const: General: no acute distress and awake Orientation/consciousness: patient oriented x3 GI: Inspection: non-distended and incision (wound vac dry and intact) GI Palp: Yes Soft to palpation, Yes Tenderness to palpation present (GI) (incisional) and No Guarding due to palpation present (GI) Auscultation: normal bowel sounds Neuro: General: no focal motor deficits and No confusion Extrem: General: no calf tenderness and no edema Psych: Affect: normal affect Insight: Good insight present (Psych) Objective Data Vital Signs Vital Signs: Vital Signs - 24 hr 09/24/22 15:48 09/24/22 20:00 09/25/22 00:00 Temperature 97.9 F 96.7 F L Pulse Rate 91 100 Respiratory Rate 18 18 Blood Pressure 150/98 H 149/88 H Pulse Oximetry 98 99 Oxygen Delivery Room Air 09/25/22 07:40 Temperature Pulse Rate Respiratory Rate Blood Pressure Pulse Oximetry Oxygen Delivery Room Air Intake/Output Intake/Output: Intake & Output 09/22/22 09/23/22 09/24/22 09/25/22 23:59 23:59 23:59 23:59 Intake Total 4830 3390 2210 320 Output Total 600 400 Balance 4230 2990 2210 320 Meds/Results Medications: Active Medications Generic Name Dose Route Start Last Admin Trade Name Freq PRN Reason Stop Dose Admin Acetaminophen 500 mg 09/22/22 08:40 Acetaminophen 500 Mg Tablet PO Q6H PRN Mild Pain (1-3) or Fever Hydrocodone Bitart/Acetaminophen 1 tab 09/24/22 08:27 09/24/22 22:22 Hydrocodone/Acetaminophen (*Crx) 5-325 Mg Tablet PO 1 tab Q4H PRN Administration Pain Rated 4-6 Hydrocodone Bitart/Acetaminophen 1 tab 09/24/22 08:27 Hydrocodone/Acetaminophen (*Crx) 10-325 Mg Tablet PO Q6H PRN Pain Rated 7-10 Enoxaparin Sodium 40 mg 09/20/22 09:00 09/25/22 09:14 Enoxaparin 40 Mg/0.4 Ml Syringe SUB-Q 40 mg DAILY ADRIANA Administration Famotidine 20 mg 09/24/22 09:00 09/25/22 09:14 Famotidine 20 Mg Tablet PO 20 mg Q12HR ADRIANA Administration Hydromorphone HCl 1 mg 09/20/22 13:20 09/21/22 02:31 Hydromorphone Hcl Inj (*Crx) 1 Mg/Ml Syr IV PUSH 1 mg Q2H PRN Administration Pain Rated 7-10 Hydromorphone HCl 0.5 mg 09/20/22 13:19 09/21/22 21:11 H
[2022-09-25 14:00] VITALS: BP 138/92; PULSE 101; RESP 18; TEMP 36.8; O2SAT 98
[2022-09-25] MEDS: ACETAMINOPHEN 500 MG TABLET PO (14:09)
--- NOTE | 2022-09-25 14:44 | PM.DS ---
DS: Admitting Diagnosis Discharge Date 09/25/2022 Admitting Diagnosis Central abdominal pain History umbilical hernia repair DS: Discharge Diagnosis Discharge Diagnosis (1) Accidental injury of intestine during surgical procedure: Code(s): K91.81 - Other intraoperative complications of digestive system Status: Acute (2) Peritonitis (acute) generalized: Code(s): K65.0 - Generalized (acute) peritonitis Status: Acute (3) History of umbilical hernia repair: Code(s): Z98.890 - Other specified postprocedural states; Z87.19 - Personal history of other diseases of the digestive system Status: Chronic (4) Hypokalemia: Code(s): E87.6 - Hypokalemia Status: Acute DS: Summary Hospital Course Hospital Course: Patient underwent open repair of umbilical hernia with Ventralex ST underlay mesh on 09/18/2022. Surgery went well and the patient did discharged that day. Unfortunately, he was home about 6 hours and started having severe central abdominal pain. He went to the emergency room at [facility] as there was some concern about a cardiac event. He had a thorough workup there including a CT scan of the abdomen and pelvis which was essentially negative. He was still having pain and was transferred to [facility]. He was seen on 09/19/22 and had severe pain and tenderness in the mid abdomen. His CT scan was reviewed with Radiology here and again no significant findings were noted. Clinically he appeared to have a complication of his surgery and peritonitis. He was taken to surgery and the umbilical wound reopened. At surgery was found to have a bowel injury. This was most likely from suturing the ileum while trying to suture the mesh. As the bowel pulled away it left an enterotomy. He then had a midline laparotomy. The mesh of was removed from the abdomen. The enterotomy was found and closed in 2 layers. The bowel content in the abdomen was suctioned away. The abdomen was thoroughly irrigated with warm saline. Hospitalist service was consulted for perioperative medical management following surgery. Postoperatively he had a nasogastric tube for a couple of days and then bowel function returned. He was started on liquids and tolerated this well. He was slowly advanced to solid food. He showed some purulent appearing wound drainage about postop day 3. A few christian were opened and a deep wound pocket was found. This was cleaned and irrigated with peroxide. The purulent fluid was gone but he had the central portion of his midline incision was now open and would require wound care. He was seen by the Wound enterostomy specialty nurses. Wound VAC was recommended and was placed. He received approval for home wound VAC therapy with home health on the day of discharge 09/25/2022. He had completed nearly a week of IV antibiotics with Levaquin 1 and metronidazole. He is discharged now on 09/25/2022 in improved condition with a wound VAC. Time spent discussing smoking cessation with patient: 3 to 10 minutes Status at Discharge Functional status at discharge: independent ambulation Overall status at discharge: patient is progressing back to baseline Time Spent with Patient Time attestation: Total time spent providing and/or coordinating discharge services: Time spent: Less than 30 minutes Exam Const: General: cooperative, healthy appearing, comfortable, no acute distress and average body habitus GI: Inspection: non-distended and incision (Wound VAC in place working well, wound christian in place elsewhere) GI Palp: Yes Soft to palpation and Yes Tenderness to palpation present (GI) (Mild appropriate tenderness) Auscultation: normal bowel sounds DS: Data Data Completed and Pending Labs on day of discharge: Labs from last 24 hours 09/25/22 09/25/22 06:30 06:30 WBC 10.6 H RBC 4.48 L Hgb 13.0 L Hct 38.5 L MCV 85.9 MCH 29.0 MCHC 33.8 RDW 14.0 Plt Count 228 MPV 10.6
--- NOTE | 2022-09-25 15:26 | PM.IMPN ---
Progress Note: A&P Assessment and Plan (1) Peritonitis (acute) generalized: Code(s): K65.0 - Generalized (acute) peritonitis Status: Acute (2) Accidental injury of intestine during surgical procedure: Code(s): K91.81 - Other intraoperative complications of digestive system Status: Acute (3) History of umbilical hernia repair: Code(s): Z98.890 - Other specified postprocedural states; Z87.19 - Personal history of other diseases of the digestive system Status: Chronic (4) Daily consumption of alcohol: Code(s): Z78.9 - Other specified health status Status: Chronic (5) Gastritis: Code(s): K29.70 - Gastritis, unspecified, without bleeding Status: Acute (6) Hyperlipidemia: Code(s): E78.5 - Hyperlipidemia, unspecified Status: Acute (7) Obesity (BMI 30-39.9): Code(s): E66.9 - Obesity, unspecified Status: Acute (8) Tobacco use: Code(s): Z72.0 - Tobacco use Status: Chronic (9) Transient elevated blood pressure: Code(s): R03.0 - Elevated blood-pressure reading, without diagnosis of hypertension Status: Acute (10) Hypokalemia: Code(s): E87.6 - Hypokalemia Status: Acute Plan 09/19/22 ?42-year-old male? status postop day 1 after herniorrhaphy presents to the hospital with acute abdominal pain and distension. ?Admit to med surge Vital signs per protocol Continue home medications? when placed into p.o. status ?Levaquin ?metronidazole ?CIWA monitoring Consult Dr. Hernandez Postoperative orders pain management, fluids, antiemetics, and antacids per surgery 09/20/22 s/p exp lap, repair of duodenal enterotomy w peritoneal washout POD1 VS improving labs improving pain improved? but not controlled (pt not asking for pain meds intentionally) OOB to chair ambulate in hallway NGT to remain until bowel fxn regained 09/21/22 bm today +flatus ambulating tolerating ice chips NGT in place to LIS anticipate dc in am if bowel fxn cont to improve cont current care LOS 2-4 more days depending on timing of bowel fxn return 09/22/22 bs present pt w BM today NGT out CLD pain controlled cont to encourage mobilization am labs 09/23/2022 potassium repletion today patient has tolerated full liquid diet and is now advanced to GI soft pain is controlled ambulate as tolerated anticipate discharge in 24-48 hours when cleared by surgery 09/24/22 Potassium slightly low at 3.3 but currently on oral replacement. Pain is much better controlled. Currently on Levaquin and Flagyl and is tolerating this well. He was educated about the benefits of abstaining from alcohol use. He is on scheduled ibuprofen. He is on gastric prophylaxis with Pepcid. Continue thiamine. Check lower extremity venous Dopplers. Continue routine postoperative care. Will continue to follow along with you. 09/25/22 Potassium normal now. Recovering well. Doppler negative for DVT. Okay for discharge from medical standpoint. Continue abx at discharge. Subjective Date/time seen: 09/25/22 15:26 Interval history: 42yo male with GERD, tobacco abuse here for post-operative abdominal pain after a laparoscopic hernia repair and found to have peritonitis. Slept poorly last night. No CP or SOB. Feels better today. Eating okay. Was able to take a nap. Feels ready for discharge. Exam Narrative: AF 98.2 138/92 101 18 98% ra Gen - NARD Chest - CTA bilaterally, nml RR CV - RRR S1/S2 Abd -Soft. Nondistended. Positive bowel sounds. wound vac in place. Ext - Trace pretibial edema. Psych - Nml mood and affect Skin - Warm and dry Objective Data Vital Signs Vital Signs: Vital Signs - 24 hr 09/24/22 15:48 09/24/22 20:00 09/25/22 00:00 Temperature 97.9 F 96.7 F L Pulse Rate 91 100 Respiratory Rate 18 18 Blood Pressure 150/98 H 149/88 H Pulse Oximetry 98 99 Oxygen Delivery Room Air 09/25/22 07:40 09/25/22 14:00 T
--- NOTE | 2022-09-25 15:37 | PC.NURSE ---
wound RN placed portable wound vac to site, reviewed instructions with pt and sent home dressing supplies
== END 2022-09-25 15:39 | disposition home health service (06) | DRG 329 ==
PROVIDERS: Surgery; Admitting Provider Surgery; PCP Family Medicine; Visit Provider Surgery
PROC: 0DQ80ZZ Repair Small Intestine, Open Approach (ICD-10-PCS; CPT 49000; principal; 2022-09-19 13:30)
DX: K91.81 Other intraoperative complications of digestive system (principal); K65.0 Generalized (acute) peritonitis; Y83.8 Other surgical procedures as the cause of abnormal reaction of the patient, or of later complication, without mention of misadventure at the time of the procedure; F17.290 Nicotine dependence, other tobacco product, uncomplicated; E66.9 Obesity, unspecified; Z68.34 Body mass index [BMI] 34.0-34.9, adult; E78.5 Hyperlipidemia, unspecified; K21.9 Gastro-esophageal reflux disease without esophagitis; R03.0 Elevated blood-pressure reading, without diagnosis of hypertension; K29.70 Gastritis, unspecified, without bleeding; E87.6 Hypokalemia; Z28.21 Immunization not carried out because of patient refusal; Z78.9 Other specified health status; Z87.19 Personal history of other diseases of the digestive system; Z98.890 Other specified postprocedural states
CPT/HCPCS: 36415; 80048; 80053; 81001; 82948; 83735; 85025; 85027; 86850; 86900; 86901; 93970; A9270; C1781; J0330; J0690; J1100; J1170; J1650; J1741; J1885; J1956; J2250; J2405; J2704; J3010; J3411; J3480; J7030; J7120

== ENCOUNTER 2022-12-01 09:53 | Outpatient (RCR) | payer OTHER, SELFPAY | END 2022-12-19 15:53 | disposition home or self-care (01) | LOC: ANHWOC 09:53 | PROVIDERS: PCP Family Medicine; Visit Provider Surgery | DX: Z48.01 Encounter for change or removal of surgical wound dressing (principal); Z48.02 Encounter for removal of sutures | CPT/HCPCS: 99212; 99213; 99214; A9270; G0463 ==